=== PATIENT | male | born 1960 | race African-American/Black ===

== ENCOUNTER 2016-08-16 16:13 | Inpatient (IN) | payer MEDICAID ==
[~2016-08-16] VITALS: Ht 182.9 cm; Wt 169.3 kg
[2016-08-16 16:59] LABS: ADD SCAN DIFF NO
--- NOTE | 2016-08-16 16:59 | RADRPT ---
PROCEDURE: CHEST 1VW CLINICAL INDICATION: Chest pain TECHNIQUE: Single frontal view of the chest was obtained COMPARISON: None. FINDINGS: The cardiac size is moderately enlarged. Aortic vascular calcifications are demonstrated. There is mild pulmonary vascular congestion. The lungs are otherwise clear. No consolidation, effusion, or pneumothorax. Mild degenerative changes of the visualized osseous structures are visualized. IMPRESSION: 1. Moderate cardiomegaly with mild pulmonary vascular congestion. 2. Atherosclerosis. RPTAT:PP .Jeyson Bermudez MD, MD Date Time Electronically viewed and signed by .Jeyson Bermudez MD, on 08/16/2016 16:59 .V/
[2016-08-16] MEDS ORDERED: FUROSEMIDE 40 MG INJ IV ONE (17:00)
[2016-08-16] MEDS ORDERED: NITROGLYCERIN 2% 1 GM OINT PKT TD ONE (17:00)
[2016-08-16 17:04] LABS: BASOPHIL # 0.1 10^3/ul (0.0-0.1); BASOPHILS % 0.6 % (0.0-2.0); EOSINOPHILS # 0.2 10^3/ul (0.0-0.5); HEMATOCRIT 60.9 % (42.0-52.0); HEMOGLOBIN 19.3 g/dl (14.0-18.0); LYMPHOCYTES # 2.2 10^3/ul (0.8-2.9); LYMPHOCYTES % 24.2 % (15.0-51.0); MEAN CORPUSCULAR HEMOGLOBIN 29.4 pg (29.0-33.0); MEAN CORPUSCULAR HGB CONC 31.7 g/dl (32.0-37.0); MEAN CORPUSCULAR VOLUME 92.8 fl (82.0-101.0); MEAN PLATELET VOLUME 11.4 fl (7.4-10.4); MONOCYTES % 10.8 % (0.0-11.0); NEUTROPHIL # 5.5 10^3/ul (1.6-7.5); NEUTROPHILS % 61.7 % (39.0-77.0); PLATELET COUNT 223 10^3/UL (140-415); RED BLOOD COUNT 6.56 10^6/ul (4.70-6.10); RED CELL DISTRIBUTION WIDTH 13.6 % (11.5-14.5); WHITE BLOOD COUNT 8.9 10^3/ul (4.8-10.8)
[2016-08-16 17:19] LABS: INR 0.99; PARTIAL THROMBOPLASTIN TIME 32.7 Sec (25.0-35.0); PROTIME 13.1 Sec (12.2-14.2)
--- NOTE | 2016-08-16 17:22 | ERA ---
ER Documentation Chief Complaint Date/Time DATE: 08/16/16 TIME: 162 Chief Complaint Complains of SOB x 1 week HPI 56-year-old male presents to the emergency department complaining of shortness of breath and lower extremity swelling. Patient states for the last week, he has noticed increasing edema about both lower extremities. He has had exertional dyspnea with PND and orthopnea. He reports no chest pain or palpitations. He reports no difficulty urinating. He reports no fevers or chills. ROS All systems reviewed and are negative except as per history of present illness. Medications Home Meds No Active Prescriptions or Reported Meds Allergies Allergies: Coded Allergies: No Known Allergy (Unverified , 08/16/16) PMhx/Soc Medical and Surgical Hx: pt denies Medical Hx, pt denies Surgical Hx History of Surgery: No Anesthesia Reaction: No Hx Neurological Disorder: No Hx Respiratory Disorders: No Hx Cardiac Disorders: No Hx Psychiatric Problems: No Hx Miscellaneous Medical Probl: No Hx Alcohol Use: No Hx Substance Use: No Hx Tobacco Use: No Smoking Status: Never smoker FmHx Family history of diabetes Physical Exam Vitals Vital Signs Date Time Temp Pulse Resp B/P Pulse Ox O2 Delivery O2 Flow Rate FiO2 08/16/16 17:11 104 24 139/114 96 Room Air 08/16/16 16:37 0 08/16/16 16:15 99.0 117 20 219/122 92 Physical Exam GENERAL: Patient is a large, plethoric male HEENT: Pupils equal, round, and reactive to light. EOMI. There is no scleral icterus. NECK: C-spine is soft and supple, there is no meningismus. There is no cervical lymphadenopathy. JVD is appreciated LUNGS: Crackles at bilateral bases. No tachypnea or retractions HEART: Regular rate and rhythm with no obvious murmurs ABDOMEN: Soft, non-tender, non-distended. There are bowel sounds in all four quadrants. No rebound or guarding. EXTREMITIES: 2-3+ edema both lower extremities with no cyanosis or clubbing NEURO: The patient moves all four extremities with 5/5 strength. Cranial nerves II - XII are intact. Normal gait. Alert and oriented SKIN: There is no apparent rash or petechiae. HEME/LYMPHATIC: There is no evidence of excessive bruising or lymphedema. PSYCHIATRIC: The patient does not appear anxious or depressed. Result Diagram: 08/16/16 1640 Results 24 hrs Laboratory Tests Test 08/16/16 16:40 White Blood Count 8.910^3/ul Red Blood Count 6.5610^6/ul Hemoglobin 19.3g/dl Hematocrit 60.9% Mean Corpuscular Volume 92.8fl Mean Corpuscular Hemoglobin 29.4pg Mean Corpuscular Hemoglobin Concent 31.7g/dl Red Cell Distribution Width 13.6% Platelet Count 25286^3/UL Mean Platelet Volume 11.4fl Neutrophils % 61.7% Lymphocytes % 24.2% Monocytes % 10.8% Eosinophils % 2.0% Basophils % 0.6% Nucleated Red Blood Cells % 0.0/100WBC Neutrophils # 5.510^3/ul Lymphocytes # 2.210^3/ul Monocytes # 1.010^3/ul Eosinophils # 0.210^3/ul Basophils # 0.110^3/ul Nucleated Red Blood Cells # 0.010^3/ul Current Medications Medications (Trade) Dose Ordered Sig/Fransico Route PRN Reason Start Time Stop Time Status Last Admin Dose Admin Nitroglycerin (Nitroglycerin 2% Oint) 1 inch ONCE ONCE TD 08/16/16 17:00 08/16/16 17:01 DC 08/16/16 16:46 Furosemide (Lasix) 40 mg ONCE ONCE IV 08/16/16 17:00 08/16/16 17:01 DC 08/16/16 16:47 Procedures/MDM Patient was taken to a room, seen and evaluated. Comfort measures were initiated. Diagnostic tests were ordered and reviewed. 3 LEAD RHYTHM STRIP: Sinus tachycardia EK lead EKG reviewed by myself: Sinus tachycardia Left axis deviation with LVH Nonspecific ST and T-wave changes without ST elevation Impression: Abnormal, nonspecific EKG RADIOLOGY: reviewed with the radiologist CONSULTATION:hospitalist was notified for admission REEVALUATION: Patient's blood pressure was improved with the nitroglycerin. MEDICAL DECISION MAKIN-year-old male presents to the emergency department with symptoms consistent with fluid overload. Patient has a history of what appears to be untreated hypertension. He is also been using testosterone for some time now. Concerned that he likely has a cardiomyopathy likely related to either the testosterone, the blood pressure or both. Patient has required blood pressure control with nitroglycerin as well as Lasix for diuresis. Patient will be admitted to the hospital for further diagnostic observation including troponins and echocardiogram. Patient will be gently diuresed with further evaluation pending. Departure Diagnosis: Primary Impression: Congestive heart failure Additional Impressions: Severe hypertension Cardiomyopathy Condition: YSABEL Anna August 16, 2016 17:22
[2016-08-16 17:27] LABS: ALBUMIN 3.9 g/dl (3.3-4.9); ALBUMIN/GLOBULIN RATIO 1.08; BILIRUBIN,INDIRECT 0.6 mg/dl (0-1.1); BILIRUBIN,TOTAL 0.6 mg/dl (0.2-1.3); CALCIUM 8.8 mg/dl (8.4-10.2); CREATININE 1.64 mg/dl (0.61-1.24); POTASSIUM 4.2 mmol/L (3.5-5.1); TOTAL PROTEIN 7.5 g/dl (6.1-8.1)
[2016-08-16 17:37] LABS: TROPONIN-I 0.041 ng/ml (0.00-0.12)
[2016-08-16] MEDS ORDERED: ACETAMINOPHEN 325 MG TAB PO PRN (18:30)
[2016-08-16] MEDS ORDERED: hydrALAzine 20 MG INJ IV PRN (18:30)
[2016-08-16] MEDS ORDERED: BISACODYL (EC) 5 MG TAB PO PRN (18:30)
[2016-08-16] MEDS ORDERED: LORAZEPAM 2 MG INJ IV PRN (18:30)
[2016-08-16] MEDS ORDERED: HYDROCODONE/APAP (5/325) TAB PO PRN (18:30)
[2016-08-16] MEDS ORDERED: ZOLPIDEM 5 MG TAB PO PRN (18:30)
[2016-08-16] MEDS ORDERED: morphine 2 MG INJ IV PRN (18:30)
[2016-08-16] MEDS ORDERED: MAGNESIUM HYDROXIDE 30ML CUP PO PRN (18:30)
[2016-08-16] MEDS ORDERED: ONDANSETRON 4 MG INJ IV PRN (18:30)
[2016-08-16] MEDS ORDERED: NACL 0.9% 3 ML SYG IV SCH (18:30)
--- NOTE | 2016-08-16 19:43 | HP ---
DATE OF ADMISSION: 08/16/2016 TIME OF EVALUATION: 1800 REASON FOR ADMISSION: Shortness of breath. CONSULTANTS: Dr. Paul Washington, Cardiology. HISTORY OF PRESENT ILLNESS: This is a 56-year-old -[place] male who denied any past medical history, who came to the emergency room with chief complaint of dyspnea as well as bilateral lower extremity swelling that has been going on for the past 2 days. The patient verbalized exertional dyspnea with PND and orthopnea. The patient denied any chest pain or palpitations. The patient was complaining of abdominal fullness. The patient verbalized that he has been using Advil PM for the past few days to help him with sleep. The patient verbalized constipation. He denied any nausea, vomiting, or diaphoresis. The patient denied any syncope or presyncope. The patient does not regularly go to a physician and he is unaware whether he has any known medical conditions. In the emergency room, the patient was noticed to have a blood pressure of 219/ 122. The patient's initial set of troponins were negative. The patient was noticed to have a creatinine of 1.64. The patient was noticed to have a hemoglobin and hematocrit of 19.3 and 60.9 respectively. The patient's chest x- ray showed moderate cardiomegaly with mild pulmonary vascular congestion and atherosclerosis. The patient's 12-lead EKG showed sinus tachycardia with possible biatrial enlargement. The patient was treated with a single dose of IV Lasix and nitroglycerin patch in the emergency room. PAST MEDICAL HISTORY: Denies. PAST SURGICAL HISTORY: Denies. HOME MEDICATIONS: None. ALLERGIES: NO KNOWN DRUG ALLERGIES. 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 Denies any use of tobacco, alcohol or recreational drug use. The patient verbalized that he used testosterone in the beginning of the month. FAMILY HISTORY: Positive for hypertension and diabetes. REVIEW OF SYSTEMS: A 12-point review of systems were made and the review of systems are negative other than what is mentioned in history of present illness. PHYSICAL EXAMINATION: VITAL SIGNS: Temperature 99.0, pulse rate 114, respiratory rate 18, blood pressure 155/105, oxygen saturation 96% on room air. GENERAL: This is a morbidly obese -[place] male lying in bed in mild respiratory distress. HEENT: Head normocephalic and atraumatic. Eyes: Anicteric sclerae. Conjunctivae clear. ENT: Nasal septum is midline. Oral mucosa is dry. NECK: Supple. No JVD noticed. RESPIRATORY: Bilaterally diminished breath sounds. Minimal use of accessory muscles of respiration. CARDIAC: Regular rate and rhythm. S1 and S2 heard. ABDOMEN: Soft, nontender and nondistended. Bowel sounds positive in all 4 quadrants. GENITOURINARY: Deferred. EXTREMITIES: Bilateral lower extremity discoloration with erythema and tenderness to touch with an open wound on the right rider anteriorly. Bilateral lower extremity peripheral pulses palpable. NEUROLOGIC: The patient is awake, alert and oriented. Cranial nerves are grossly intact. LABORATORY AND DIAGNOSTIC DATA: WBC 8.9, hemoglobin 19.3, hematocrit 60.9, platelet count 223. Sodium 142, potassium 4.0, chloride 101, carbon dioxide 30 , anion gap 15, BUN 17, creatinine 1.64, glucose 122, calcium 8.8, AST 42, ALT 56, alkaline phosphatase 81. BNP 825, PT 13.1, INR 0.998, PTT 32.7. Chest x-ray: Moderate cardiomegaly with mild pulmonary vascular congestion. Atherosclerosis. 12-lead EKG: Sinus tachycardia. Possible biatrial enlargement. IMPRESSION: This is a 56-year-old morbidly obese male who denied any significant past medical history, who came to the emergency room with chief complaint of dyspnea with dyspnea on exertion, paroxysmal nocturnal dyspnea and orthopnea, along with bilateral lower extremity edema. He will be admitted here for further treatment and evaluation. ASSESSMENT AND PLAN: 1. Acute respiratory failure. Hypoxia. Most probably secondary to underlying congestive heart failure exacerbation. The patient will be adequately diuresed. A Cardiology consult will be obtained. The patient will be started on aspirin. 2. Possible underlying congestive heart failure exacerbation. Systolic versus diastolic dysfunction. The patient will be adequately diuresed while watching the patient's renal function. Cardiology consult will be obtained. A 2D echocardiogram will be obtained to evaluate the left ventricular ejection fraction and to evaluate for any wall motion abnormalities. 3. Bilateral lower extremity edema. Etiology unclear. Bilateral lower extremity venous Doppler study will be done to evaluate for any underlying deep venous thrombosis. The patient will be adequately diuresed. 4. Acute nonoliguric kidney injury. Unknown baseline creatinine. Nephrotoxic drugs will be used with caution. The patient's BUN and creatinine will be monitored closely. 5. Bilateral lower extremity cellulitis. The patient will be started on appropriate antibiotics. 6. Morbid obesity. BMI of 50.8 kilograms per meter square. Weight reduction will be advised. A fasting lipid panel and a hemoglobin A1c will be obtained. 7. Hypertensive urgency. The patient's blood pressure is trending down. The patient's blood pressure will be lowered gradually. The patient will be started on beta blockers. The patient has bilateral lower extremity edema, therefore, calcium channel blockers will be avoided at this time. HIMA inhibitors will be avoided because of underlying elevated creatinine. 8. Polycythemia. Etiology unclear. Will monitor the H&H closely. Plan. The patient will be admitted to inpatient telemetry floor. The patient will be started on a low cholesterol diet. The patient will be started on DVT prophylaxis and gastrointestinal prophylaxis. The patient will remain a FULL CODE. Activities will be as tolerated. The rest of the patient's management will be based on the clinical course, the results of diagnostic studies, and inputs from consultants. Based on the patient's clinical presentation, he most probably requires at least 1 midnight's stay for further management and evaluation of his clinical presentation. The case and management of this patient was fully discussed with Dr. Mcintyre. ISAAC MCINTYRE MD, AM/JOSI Conf#: [id number] DID#: [id number] MTDD
[2016-08-16 20:42] VITALS: TEMP 98.8
[2016-08-16 21:00] VITALS: Ht 182.9 cm; Wt 169.3 kg
[2016-08-16] MEDS: POLYETHYLENE GLYCOL 17 GM PACKET PO SCH (21:00)
[2016-08-16 21:07] VITALS: PULSE 94
[2016-08-16 21:08] VITALS: BP 155/97; RESP 20
[2016-08-16] MEDS: CEPHALEXIN 500 MG CAP PO SCH (22:12)
[2016-08-16] MEDS: FAMOTIDINE 20 MG TAB PO SCH (22:12)
[2016-08-16] MEDS: METOPROLOL 25 MG TAB PO SCH (22:14)
[2016-08-16] MEDS: HEPARIN 5,000 UNIT/0.5 ML VIAL SC SCH (22:25)
[2016-08-16 23:49] LABS: CK-MB 3.1 ng/ml (0.0-2.4)
[2016-08-16 23:53] LABS: TROPONIN-I 0.145 ng/ml (0.00-0.12)
[2016-08-17] VITALS (12 sets, daily range): BP systolic 126–139; BP diastolic 71–90; PULSE 76–88; RESP 18–20
[2016-08-17 02:02] LABS: ADD UMIC YES; URINE BILIRUBIN (Dip) NEGATIVE (NEGATIVE); URINE BLOOD (Dip) TRACE (NEGATIVE); URINE COLOR LT. YELLOW (YELLOW); URINE GLUCOSE (Dip) NEGATIVE (NEGATIVE); URINE KETONES (Dip) NEGATIVE (NEGATIVE); URINE LEUKOCYTE ESTERASE (Dip) NEGATIVE (NEGATIVE); URINE NITRITE (Dip) NEGATIVE (NEGATIVE); URINE TOTAL PROTEIN (Dip) 1+ (NEGATIVE); URINE UROBILINOGEN (Dip) 0.2 E.U./dL (0.1-1.0)
[2016-08-17 02:18] LABS: URINE RBCS 0-2 /HPF (0)
[2016-08-17 02:25] LABS: BARBITURATES NEGATIVE (NEGATIVE); BENZODIAZEPINES NEGATIVE (NEGATIVE); CANNABINOIDS NEGATIVE (NEGATIVE); COCAINE NEGATIVE (NEGATIVE); OPIATES NEGATIVE (NEGATIVE)
[2016-08-17] MEDS: CEPHALEXIN 500 MG CAP PO SCH ×3 (05:29→21:02)
[2016-08-17] MEDS: HEPARIN 5,000 UNIT/0.5 ML VIAL SC SCH ×3 (05:41→21:13)
[2016-08-17 06:51] LABS: ADD SCAN DIFF NO
[2016-08-17 06:59] LABS: BASOPHIL # 0.1 10^3/ul (0.0-0.1); BASOPHILS % 0.5 % (0.0-2.0); EOSINOPHILS # 0.2 10^3/ul (0.0-0.5); EOSINOPHILS % 2.3 % (0.0-7.0); HEMATOCRIT 60.6 % (42.0-52.0); HEMOGLOBIN 18.8 g/dl (14.0-18.0); LYMPHOCYTES # 2.3 10^3/ul (0.8-2.9); LYMPHOCYTES % 24.1 % (15.0-51.0); MEAN CORPUSCULAR HEMOGLOBIN 29.5 pg (29.0-33.0); MEAN CORPUSCULAR VOLUME 95.1 fl (82.0-101.0); MONOCYTE # 1.1 10^3/ul (0.3-0.9); MONOCYTES % 11.8 % (0.0-11.0); NEUTROPHIL # 5.8 10^3/ul (1.6-7.5); NEUTROPHILS % 60.9 % (39.0-77.0); PLATELET COUNT 217 10^3/UL (140-415); RED BLOOD COUNT 6.37 10^6/ul (4.70-6.10); WHITE BLOOD COUNT 9.5 10^3/ul (4.8-10.8)
[2016-08-17 07:17] LABS: ALBUMIN 3.6 g/dl (3.3-4.9); CHOL/HDL RATIO 5.3 RATIO; MAGNESIUM 2.3 mg/dl (1.7-2.5); PHOSPHORUS 3.9 mg/dl (2.5-4.9); POTASSIUM 4.4 mmol/L (3.5-5.1)
[2016-08-17 07:19] LABS: CREATININE 1.74 mg/dl (0.61-1.24)
[2016-08-17 07:20] LABS: ALBUMIN/GLOBULIN RATIO 1.05; CALCIUM 8.4 mg/dl (8.4-10.2)
[2016-08-17 07:26] LABS: TROPONIN-I 0.205 ng/ml (0.00-0.12)
[2016-08-17] MEDS: ASPIRIN 81 MG TAB PO SCH (08:31)
[2016-08-17] MEDS: POLYETHYLENE GLYCOL 17 GM PACKET PO SCH ×2 (08:32→21:00)
[2016-08-17] MEDS: METOPROLOL 25 MG TAB PO SCH (08:32)
[2016-08-17] MEDS: FUROSEMIDE 40 MG INJ IV SCH (08:32)
[2016-08-17] MEDS: FAMOTIDINE 20 MG TAB PO SCH ×2 (08:32→21:01)
[2016-08-17 08:35] LABS: CK-MB 2.89 ng/ml (0.0-2.4); TROPONIN-I 0.206 ng/ml (0.00-0.12)
--- NOTE | 2016-08-17 08:53 | RADRPT ---
PROCEDURE: US Lower extremity Venous. CLINICAL INDICATION: Bilateral lower extremity edema TECHNIQUE: Multiple sonographic images of the bilateral lower extremity deep venous system was obt ained utilizing grayscale, color-flow, compressive sonography and doppler imaging with augmentation. The images were reviewed on a PACS workstation. COMPARISON: None. FINDINGS: The study is limited due to the patient's body habitus. The left distal femoral vein was not visual ized. The right distal femoral vein is patent. There is normal compressibility and flow within the bilateral common femoral, proximal and mid femor al , posterior tibial and popliteal veins. RPTAT: AA IMPRESSION: No sonographic evidence for deep venous thrombosis. Limited study due to patient body habitus. .Awais Medel MD, MD Date Time Electronically viewed and signed by .Awais Medel MD, on 08/17/2016 08:52 .S/
--- NOTE | 2016-08-17 09:02 | RADRPT ---
PROCEDURE: Retroperitoneal US. CLINICAL INDICATION: isis TECHNIQUE: Multiple sonographic images of the retroperitoneum were obtained. The images were revi ewed on a PACS workstation. COMPARISON: No prior studies are available for comparison. FINDINGS: The right kidney measures 10.9 cm. The left kidney measures 11.8 cm. The renal parenchymal echotexture is normal. There is no hydronephrosis. There is no focal renal mass or calcification seen. There is a 2.6 cm simple cyst in the lower pole of the left kidney. The bladder is grossly unremarkable. IMPRESSION: 2.6 cm simple left renal cyst. Bilateral kidneys are otherwise unremarkable. RPTAT: EE Physician Alfonzo Date Time Electronically viewed and signed by Physician Alfonzo on 08/17/2016 09:02 /
--- NOTE | 2016-08-17 10:31 | CONS ---
DATE OF ADMISSION: 08/16/2016 DATE OF CONSULTATION: 08/17/2016 REASON FOR CONSULTATION: Acute kidney injury. PHYSICIAN REQUESTING CONSULT: Shiv Garcia NP HISTORY OF PRESENT ILLNESS: This is a 56-year-old male with no known past history with obesity who presents to [facility] with complaints of dyspnea on exertion, bilateral lower ext remity swelling over the past several days. The patient states that over the past several days he h as noted to have increased lower extremity swelling with noted exertional dyspnea. The patient is a lso describing PND and orthopnea. The patient denied having any nausea, vomiting or any hematuria. As a result of these symptoms, he came to the emergency room for evaluation. Upon arrival, the pat ient was noted to be hypertensive with systolic pressures of 200s. Chest x-ray was obtained which s howed evidence of cardiomegaly with pulmonary vascular congestion. In the emergency room, patient h ad serial troponins checked which were elevated ranging from 0.1 to 0.2. The patient had elevated B HR LEADER at 825. In the emergency room, the patient was given aspirin, diuretic therapy and admitted up t o telemetry for evaluation. In terms of the patient's renal history, the patient describes having possible acute kidney injury a s a child. The patient describes some kind of surgery; it is unclear if it was from a stone obstruc tion or acute GN. The patient states as far as he understood, his kidney function improved. Additi onally, patient has not seen a physician in quite some time and has not had any recent lab work done . The patient denies taking any recent contrast exposure. Denies any NSAID use. Denies any frothy urine. Denies any rashes. PAST MEDICAL HISTORY: History of obesity, questionable history of acute kidney injury as a child. PAST SURGICAL HISTORY: None. HOME MEDICATIONS: None. ALLERGIES: NO KNOWN DRUG ALLERGIES. 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 No alcohol or drug use. FAMILY HISTORY: Positive for hypertension, diabetes. No family history of kidney disease. REVIEW OF SYSTEMS: A 14-point review of systems was conducted; pertinent positives as in HPI, other overton negative. PHYSICAL EXAMINATION: VITAL SIGNS: Blood pressure 132/90, respiration 18, pulse 86, temperature 97.9. HEENT: Head is normocephalic. NECK: Supple. HEART: Regular rate. LUNGS: Show diminished breath sounds at base. ABDOMEN: Soft, nontender to palpation without rebound or guarding. EXTREMITIES: Negative for clubbing, cyanosis. Positive edema. DERMATOLOGIC: No rashes. MUSCULOSKELETAL: No joint effusions. NEUROLOGIC: No change in exam. No focal deficits. MEDICATIONS: The patient's medications have been reviewed. LABORATORY DATA: Shows a white count 9.5, hemoglobin .8, hematocrit 60.6, platelet count 270. Sodium 142, potassium 4.4, chloride 107, BUN 18, creatinine 1.74. ASSESSMENT AND PLAN: This is a 56-year-old male who presents with: 1. Nonoliguric acute kidney injury with unknown baseline creatinine, possible chronic kidney diseas e. Etiology of current acute kidney injury is likely from hemodynamics, hypertensive urgency, quest ionable tubular injury. The patient's urinalysis does show +1 proteinuria but otherwise is flat. P gianni at this point is to repeat UA with microanalysis, we will check electrolytes. We will check irish al ultrasound to rule out renal parenchyma and to rule out any form of obstruction. Would continue current medical management and monitor renal function and electrolytes closely. Otherwise, continue supportive care, renally dose all medications and avoid nephrotoxins. 2. Possible chronic kidney disease; underlying etiology may be due hypertensive nephrosclerosis zuhair angela previous acute kidney injury and nephrotoxic exposure. The patient currently has acute kidney i njury as stated above. We will continue medical management. We will also follow up renal ultrasoun d. We will quantify the patient's proteinuria by checking a microalbumin, creatinine ratio and prot ein to creatinine ratio. We will continue to monitor closely. 3. Acute respiratory failure, dyspnea. Etiology is secondary to congestive heart failure exacerbat ion, acute myocardial infarction; however, would rule out possibility of PE. Plan would be to check a Doppler lower extremity ultrasound with followup 2D echo. Continue to check serial troponins. C ontinue current diuretic regimen, we will monitor closely. 4. Volume overload; patient has noted lower extremity edema. Etiology is likely secondary to conge stive heart failure, possibly systolic, diastolic. The patient has noted edema on exam. Chest x-ra y shows pulmonary congestion. At this point, continue current medical management. Continue diureti c regimen. Follow up 2D echo. Continue to monitor strict I's and O's. 5. Mineral bone disorder; monitor calcium and phosphorus levels. 6. Polycythemia; patient's hemoglobin levels are markedly elevated. We will continue to monitor; m ay consider hematologic evaluation. 7. Lower extremity cellulitis. Continue current antibiotic regimen. 8. Hypertensive urgency. Etiology may be multifactorial, undiagnosed hypertension, increased intra vascular volume. The patient's blood pressures have improved. Continue current medical management. 9. Morbid obesity. Continue dietary modification. Thank you, Shiv for this interesting consult. It will be a pleasure to follow patient with yo u throughout the hospital course. Dictated By: MADONNA MUSTAFA DO NR/NTS Conf#: [id number] DID#: [id number] CC: SHIV GARCIA NP; Yesi Salcido;*[facility]*
[2016-08-17 11:30] LABS: ADD UMIC YES; URINE BILIRUBIN (Dip) NEGATIVE (NEGATIVE); URINE BLOOD (Dip) TRACE (NEGATIVE); URINE COLOR LT. YELLOW (YELLOW); URINE GLUCOSE (Dip) NEGATIVE (NEGATIVE); URINE KETONES (Dip) NEGATIVE (NEGATIVE); URINE LEUKOCYTE ESTERASE (Dip) NEGATIVE (NEGATIVE); URINE NITRITE (Dip) NEGATIVE (NEGATIVE); URINE TOTAL PROTEIN (Dip) 1+ (NEGATIVE); URINE UROBILINOGEN (Dip) 0.2 E.U./dL (0.1-1.0)
[2016-08-17 11:59] LABS: BACTERIA,URINE RARE; URINE RBCS 0-2 /HPF (0)
--- NOTE | 2016-08-17 13:02 | RADRPT ---
Echocardiogram Report Patient Name: GREY AVILA Gender: Male Date: 1960 Study Date: 17-Aug-2016 Jewelry Dipper: Kiara [facility] Location: [id number] Ref. Physician: ISAAC MASSEY Quality: Technically Difficult Study Procedures: Transthoracic echocardiogram with complete 2D, M-Mode, and doppler examination. Indications: Evaluate Left Ventricular function. 2D/M Mode Doppler Measurement Value Normal Ranges Measurement Value Normal Ranges LVIDd 2D 7.2 3.5 - 5.6 cm AV Peak Valentino 1.0 m/sec LVIDs 2D 6.0 2.1 - 4.1 cm AV Peak PG 3.8 mmHg LVPWd 2D 1.6 0.6 - 1.1 cm LVOT Peak Valentino 0.5 m/sec IVSd 2D 1.3 0.6 - 1.1 cm LVOT Peak PG 1.2 mmHg AoR Diam 2D 3.4 2.0 - 3.7 cm MV E Peak Valentino 0.9 m/sec EDV 2D 274.3 cm3 MV A Peak Valentino 0.5 m/sec ESV 2D 219.1 cm3 MV E/A 1.6 LA Dimen 2D 3.7 2.3 - 4.0 cm MV Decel Time 175 msec MV Decel Bullitt 5 MV E/A 1.6 Findings Left Ventricle: Mild concentric left ventricular hypertrophy. Moderate enlargement of left ventricle cavity. Severe global left ventricular systolic dysfunction. Ejection fraction is visually estimated at 25 %. Tissue Doppler/Mitral Doppler indices are consistent with impaired relaxation (Stage I diastolic dysfunction). Right Ventricle: Normal right ventricular size. Normal right ventricular systolic function. Left Atrium: The left atrium is normal in size. Right Atrium: The right atrium is normal in size. Mitral Valve: Mild mitral leaflet calcification. Trace mitral regurgitation. Aortic Valve: No significant aortic stenosis or insufficiency. Aortic valve not well visualized. Tricuspid Valve: Normal appearance and function of the tricuspid valve with trace physiologic regurgitation. Pulmonic Valve: Pulmonic valve not well visualized. There is trace pulmonic regurgitation. Pericardium: Normal pericardium with no significant pericardial effusion. Aorta: Normal aortic root. IVC: Normal size and normal respiratory collapse consistent with normal right atrial pressure. Conclusions 1.Mild concentric left ventricular hypertrophy. Moderate enlargement of left ventricle cavity. Severe global left ventricular systolic dysfunction. Ejection fraction is visually estimated at 25 %. Tissue Doppler/Mitral Doppler indices are consistent with impaired relaxation (Stage I diastolic dysfunction). 2.Mild mitral leaflet calcification. Trace mitral regurgitation. 3.No significant aortic stenosis or insufficiency. Aortic valve not well visualized. 4.Normal appearance and function of the tricuspid valve with trace physiologic regurgitation. 5.Normal size and normal respiratory collapse consistent with normal right atrial pressure. 6.suboptimal study. Electronically Signed By: Paul Washington 17-Aug-2016 13:01:48 -0700 Patient Name: GREY AVILA Study Date: 17-Aug-2016 [id number]
--- NOTE | 2016-08-17 16:22 | PN ---
Date/Time of Note Date/Time of Note DATE: 08/17/16 TIME: 16:21 Assessment/Plan VTE Prophylaxis VTE Prophylaxis Intervention: heparin Lines/Catheters IV Catheter Type (from [facility]): Peripheral IV Urinary Cath still in place: No Assessment/Plan Chief Complaint/Hosp Course 1. Acute respiratory failure. Hypoxic. Secondary to underlying congestive heart failure exacerbation. The patient will be adequately diuresed. Will provide supplemental oxygen 2. Non-ST elevation myocardial infarction. The patient on aspirin. Being followed by cardiology. 3. Congestive heart failure exacerbation. Acute on chronic. Systolic dysfunction. Continue Lasix as per nephrology. 4. Cardiomyopathy with ejection fraction of 25%. Etiology unclear. Patient currently on beta blockers. Cardiology following. 5. Bilateral lower extremity edema. Bilateral lower extremity venous Doppler study due for any DVT. The patient will be adequately diuresed. 6. Acute nonoliguric kidney injury. Underlying unknown baseline creatinine. Nephrotoxic drugs will be used with caution. The patient's BUN and creatinine will be monitored closely. Nephrology following. 7. Bilateral lower extremity cellulitis. The patient will be continued on appropriate antibiotics. 8. Morbid obesity. BMI of 50.8 kilograms per meter square. Weight reduction will be advised. 9. Hypertensive urgency. The patient's blood pressure is trending down. The patient's blood pressure will be lowered gradually. 10. Polycythemia. Etiology unclear. Will obtain hematology consult. 11. Dyslipidemia. Low-cholesterol diet. 12. Fluids, electrolytes, and nutrition. Low-cholesterol, renal diet. 13. DVT prophylaxis. Subcutaneous heparin. 14. Gastrointestinal prophylaxis. Histamine 2 receptor blockers. 15. Plan. Continue telemetry monitoring. Await further cardiology recommendations. Case discussed with Dr. Thapa. Patient's mother Wilda was called at [phone] and updated the status. Problems: Subjective 24 Hr Interval Summary Free Text/Dictation Denies any chest pain or dyspnea. Exam/Review of Systems Vital Signs Vitals Vital Signs Date Time Temp Pulse Resp B/P Pulse Ox O2 Delivery O2 Flow Rate FiO2 08/17/16 15:18 84 19 139/80 98 08/17/16 11:25 97.9 08/17/16 08:43 Nasal Cannula 4.0 Intake and Output 08/16/16 08/16/16 08/17/16 15:00 23:00 07:00 Intake Total 400 ml Output Total 1150 ml 1350 ml Balance -1150 ml -950 ml Exam GENERAL: This is a morbidly obese -Surinamese male lying in bed in mild respiratory distress. HEENT: Head normocephalic and atraumatic. Eyes: Anicteric sclerae. Conjunctivae clear. ENT: Nasal septum is midline. Oral mucosa is dry. NECK: Supple. No JVD noticed. RESPIRATORY: Bilaterally diminished breath sounds. Minimal use of accessory muscles of respiration. CARDIAC: Regular rate and rhythm. S1 and S2 heard. ABDOMEN: Soft, nontender and nondistended. Bowel sounds positive in all 4 quadrants. GENITOURINARY: Deferred. EXTREMITIES: Bilateral lower extremity discoloration with erythema and tenderness to touch with an open wound on the right rider anteriorly. Bilateral lower extremity peripheral pulses palpable. NEUROLOGIC: The patient is awake, alert and oriented. Cranial nerves are grossly intact. Results Result Diagram: 08/17/16 0605 08/17/16 0605 Results 24 hrs Laboratory Tests Test 08/16/16 16:40 08/16/16 22:50 08/17/16 00:01 08/17/16 06:05 White Blood Count 8.9 9.5 Red Blood Count 6.56 H 6.37 H Hemoglobin 19.3 H 18.8 H Hematocrit 60.9 H 60.6 H Mean Corpuscular Volume 92.8 95.1 Mean Corpuscular Hemoglobin 29.4 29.5 Mean Corpuscular Hemoglobin Concent 31.7 L 31.0 L Red Cell Distribution Width 13.6 14.0 Platelet Count 223 217 Mean Platelet Volume 11.4 H 12.0 H Neutrophils % 61.7 60.9 Lymphocytes % 24.2 24.1 Monocytes % 10.8 11.8 H Eosinophils % 2.0 2.3 Basophils % 0.6 0.5 Nucleated Red Blood Cells % 0.0 0.0 Neutrophils # 5.5 5.8 Lymphocytes # 2.2 2.3 Monocytes # 1.0 H 1.1 H Eosinophils # 0.2 0.2 Basophils # 0.1 0.1 Nucleated Red Blood Cells # 0.0 0.0 Prothrombin Time 13.1 Prothrombin Time Ratio 1.0 INR International Normalized Ratio 0.99 Activated Partial Thromboplast Time 32.7 Sodium Level 142 142 Potassium Level 4.2 4.4 Chloride Level 101 107 Carbon Dioxide Level 30 34 H Anion Gap 15 5 #L Blood Urea Nitrogen 17 18 Creatinine 1.64 H 1.74 H Glucose Level 122 108 Hemoglobin A1c 5.6 Calcium Level 8.8 8.4 Total Bilirubin 0.6 1.0 Direct Bilirubin 0.00 0.00 Indirect Bilirubin 0.6 1.0 Aspartate Amino Transf (AST/SGOT) 42 39 Alanine Aminotransferase (ALT/SGPT) 56 48 Alkaline Phosphatase 81 80 Troponin I 0.041 0.145 *H 0.205 *H B-Type Natriuretic Peptide 825 H Total Protein 7.5 7.0 Albumin 3.9 3.6 Globulin 3.60 H 3.40 H Albumin/Globulin Ratio 1.08 1.05 Vitamin D 1,25-Dihydroxy < 12.8 L Thyroid Stimulating Hormone (TSH) 2.600 Free Thyroxine 0.86 Creatine Kinase 407 H 306 H Creatine Kinase Index 0.8 0.9 Creatinine Kinase MB (Mass) 3.10 H 2.89 H Urine Color LT. YELLOW Urine Clarity CLEAR Urine pH 5.5 Urine Specific [place] 1.015 Urine Ketones NEGATIVE Urine Nitrite NEGATIVE Urine Bilirubin NEGATIVE Urine Urobilinogen 0.2 E.U./dL Urine Leukocyte Esterase NEGATIVE Urine Microscopic RBC 0-2 Urine Microscopic WBC NONE SEEN Urine Hemoglobin TRACE Urine Glucose NEGATIVE Urine Total Protein 1+ H Urine Opiates Screen NEGATIVE Urine Barbiturates NEGATIVE Urine Amphetamines Screen NEGATIVE Urine Benzodiazepines Screen NEGATIVE Urine Cocaine Screen NEGATIVE Urine Cannabinoids NEGATIVE Phosphorus Level 3.9 Magnesium Level 2.3 Triglycerides Level 154 H Cholesterol Level 154 LDL Cholesterol, Calculated 94 HDL Cholesterol 29 Cholesterol/HDL Ratio 5.3 Test 08/17/16 09:35 Urine Color LT. YELLOW Urine Clarity CLEAR Urine pH 6.0 Urine Specific [place] 1.010 Urine Ketones NEGATIVE Urine Nitrite NEGATIVE Urine Bilirubin NEGATIVE Urine Urobilinogen 0.2 E.U./dL Urine Leukocyte Esterase NEGATIVE Urine Microscopic RBC 0-2 Urine Microscopic WBC NONE SEEN Urine Epithelial Cells RARE Urine Bacteria RARE Urine Hemoglobin TRACE Urine Random Creatinine 51.05 Urine Random Sodium 90 Urine Glucose NEGATIVE Urine Total Protein 83.0 H Medications Medications Current Medications Lorazepam (Ativan) 0.5 mg Q6H PRN IV ANXIETY; Start 08/16/16 at 18:30 Ondansetron HCl (Zofran Inj) 4 mg Q6H PRN IV NAUSEA AND/OR VOMITING; Start at 18:30 Aspirin (Aspirin) 81 mg DAILY PO Last administered on 08/17/16 08:31; Admin Dose 81 MG; Start 08/17/16 at 09:00 Acetaminophen (Tylenol Tab) 650 mg Q6H PRN PO PAIN LEVEL 1-3 OR FEVER Last administered on 08/16/16 22:15; Admin Dose 650 MG; Start 08/16/16 at 18:30 Acetaminophen/ Hydrocodone Bitart ([place] (5/325)) 2 tab Q6H PRN PO PAIN LEVEL 7 -10; Start 08/16/16 at 18:30 Morphine Sulfate (morphine) 2 mg Q4H PRN IV PAIN LEVEL 7-10; Start 08/16/16 at 18:30 Zolpidem Tartrate (Ambien) 5 mg QHS PRN PO INSOMNIA; Start 08/16/16 at 18:30 Magnesium Hydroxide (Milk Of Mag) 30 ml DAILY PRN PO CONSTIPATION; Start at 18:30 Bisacodyl (Dulcolax) 5 mg DAILY PRN PO CONSTIPATION; Start 08/16/16 at 18:30 Famotidine (Pepcid) 20 mg Q12 PO Last administered on 08/17/16 08:32; Admin Dose 20 MG; Start 08/16/16 at 21:00 Heparin Sodium (Porcine) (Heparin (5000 Units/0.5 ml)) 5,000 unit Q8 SC Last administered on 08/17/16 13:41; Admin Dose 5,000 UNIT; Start 08/16/16 at 22:00 Cephalexin (Keflex) 500 mg Q8 PO Last administered on 08/17/16 13:36; Admin Dose 500 MG; Start 08/16/16 at 22:00 Polyethylene Glycol (Miralax) 17 gm BID PO Last administered on 08/17/16 08:32 ; Admin Dose 17 GM; Start 08/16/16 at 21:00 Furosemide (Lasix) 40 mg DAILY IV Last administered on 08/17/16 08:32; Admin Dose 40 MG; Start 08/17/16 at 09:00 Metoprolol Tartrate (Lopressor) 25 mg BID PO Last administered on 08/17/16 08: 32; Admin Dose 25 MG; Start 08/16/16 at 21:00 Hydralazine HCl (Apresoline) 10 mg Q6H PRN IV SBP>170; Start 08/16/16 at 18:30 ISAAC MASSEY NP August 17, 2016 16:22 ISAAC MASSEY NP August 17, 2016 16:22
[2016-08-17] MEDS ORDERED: DIGOXIN 500 MCG INJ IV ONE (16:30)
[2016-08-17] MEDS: SPIRONOLACTONE 25 MG TAB PO SCH (16:47)
[2016-08-18] VITALS (13 sets, daily range): BP systolic 140–182; BP diastolic 81–94; PULSE 50–98; RESP 18–20
[2016-08-18] MEDS: CEPHALEXIN 500 MG CAP PO SCH ×3 (06:14→21:08)
[2016-08-18] MEDS: HEPARIN 5,000 UNIT/0.5 ML VIAL SC SCH ×3 (06:20→22:05)
[2016-08-18 07:32] LABS: ADD SCAN DIFF NO
[2016-08-18 07:41] LABS: BASOPHIL # 0.1 10^3/ul (0.0-0.1); BASOPHILS % 0.6 % (0.0-2.0); EOSINOPHILS # 0.2 10^3/ul (0.0-0.5); EOSINOPHILS % 2.1 % (0.0-7.0); HEMATOCRIT 61.3 % (42.0-52.0); HEMOGLOBIN 19.1 g/dl (14.0-18.0); LYMPHOCYTES # 1.9 10^3/ul (0.8-2.9); LYMPHOCYTES % 19.8 % (15.0-51.0); MEAN CORPUSCULAR HEMOGLOBIN 29.7 pg (29.0-33.0); MEAN CORPUSCULAR HGB CONC 31.2 g/dl (32.0-37.0); MEAN CORPUSCULAR VOLUME 95.2 fl (82.0-101.0); MEAN PLATELET VOLUME 11.5 fl (7.4-10.4); MONOCYTES % 10.5 % (0.0-11.0); NEUTROPHIL # 6.3 10^3/ul (1.6-7.5); NEUTROPHILS % 66.5 % (39.0-77.0); PLATELET COUNT 217 10^3/UL (140-415); RED BLOOD COUNT 6.44 10^6/ul (4.70-6.10); RED CELL DISTRIBUTION WIDTH 13.9 % (11.5-14.5); WHITE BLOOD COUNT 9.5 10^3/ul (4.8-10.8)
--- NOTE | 2016-08-18 07:52 | CONS ---
DATE OF ADMISSION: 08/16/2016 DATE OF CONSULTATION: 08/17/2016 TYPE OF CONSULTATION: Pulmonary. REFERRING PHYSICIAN: ISAAC GARCIA [facility]IN[facility] RECEPTIONIST. REASON FOR CONSULTATION: Congestive heart failure, cardiomyopathy. CHIEF COMPLAINT: Shortness of breath, lower extremity edema. HISTORY OF PRESENT ILLNESS: Thank you for referring this patient. I had review of the chart and di scussion with the physician, staff and Jose Garcia. The patient is a pleasant 56-year-old [place] gentleman with no reported past medical history who came to emergency room above complain t. Patient over the past 2 weeks has been having increasing shortness of breath and orthopnea. Als o, lower extremity edema. He has had severe dyspnea especially on limited activity even walking to his car. The patient normally exercises. He goes to the gym. He works out. He denies any drug ab use; however, has used testosterone though. Denies any chest pain or pressure to me. In the emerge ncy room, he was noted to be severely hypertensive, blood pressure of 290/122. Troponin has been mi ldly elevated at 0.14, repeat at 0.2. The patient, however, denies any chest pain or pressure to me . Creatinine also has been elevated. The patient has been placed on diuresis and currently breathi ng better. PAST MEDICAL HISTORY: He denies. SOCIAL HISTORY: The patient denies any history of tobacco, alcohol, drug abuse. He does use testos terone. MEDICATIONS AT HOME. None. However, he does use testosterone injection on his own. FAMILY HISTORY: No reported early coronary artery disease. ALLERGIES: NO REPORTED ALLERGIES. REVIEW OF SYSTEMS: Denied all except for above-mentioned. PHYSICAL EXAMINATION: VITAL SIGNS: Temperature 97.9, heart rate of 84, blood pressure 139/80, respiration rate of 19, sat urating 98%. Blood pressure on admission was 219/122 but since then has been down to 130 to 150s. Respiratory rate of 22, saturating 98%. HEENT: Normocephalic, atraumatic, morbidly obese gentleman. Pupils are equal. CARDIOVASCULAR: Regular rate and rhythm, systolic murmur. PULMONARY: With mild rhonchi at the base. GASTROINTESTINAL: Obese, soft, nontender. EXTREMITIES: Diffuse bilateral lower extremity edema. With positive ulceration on the right foot. NEUROLOGIC: Awake and alert. PSYCHIATRIC: Appears to be calm and pleasant. DIAGNOSTIC DATA: EKG was personally reviewed, which shows sinus tachycardia with anteroseptal infar ct, age undetermined, nonspecific T-wave abnormalities. Echocardiogram was also personally reviewed , which was a suboptimal study showed the LV is dilated at 7.2. Ejection fraction estimated about 2 5% with grade I diastolic dysfunction. Trace MR. Chest x-ray shows cardiomegaly, mild pulmonary va scular congestion. LABORATORY: Sodium 142, potassium 4.4, BUN of 18, creatinine 1.7, glucose 108. Troponin 0.145 and 0.2. CK total is 407 with MB fraction of 3.1 and 306 ____with of 2.86. Cholesterol is 154, LDL 94, HDL of 29. TSH is within normal limits at 2.6. WBC was 9.5, hemoglobin of 19.3 and platelets 223. ASSESSMENT AND PLAN: 1. Congestive heart failure, acute on chronic, secondary to systolic dysfunction. 2. Severe left ventricular severe cardiomyopathy, etiology is to be determined. 3. Mildly abnormal troponin, probably related to above, need to rule out underlying coronary artery disease. 4. Renal failure, acute on chronic. 5. Hypertensive urgency, currently improved. 6. Markedly elevated hemoglobin and hematocrit. Rule out hemochromatosis. 7. Dyslipidemia with low HDL level. 7. Renal failure, acute on chronic. 8. Respiratory failure secondary to above. 9. Lower extremity cellulitis and edema. RECOMMENDATIONS: Diuresis as per renal. We will continue with Lasix daily for now. Aldactone will be added. We will start the patient on digoxin as well. Will change the Coreg to carvedilol and a djust it as tolerated. Will hold off on HIMA inhibitor with acute renal failure for now. Hydralazin e nitrate combination will be continued. Recommend hematology evaluation for polycythemia. Will co ntinue to monitor along with you on telemetry. We will consider ischemic workup coronary angiograph y versus stress testing once the patient improves clinically from the heart failure standpoint. Dictated By: KELLEY MONGE/JOSI Conf#: [id number] DID#: [id number]
[2016-08-18 07:57] LABS: IRON 129 ug/dl (35-150)
[2016-08-18 08:04] LABS: ALBUMIN 4.4 g/dl (3.3-4.9); ALBUMIN/GLOBULIN RATIO 1.51; BILIRUBIN,INDIRECT 1.1 mg/dl (0-1.1); BILIRUBIN,TOTAL 1.1 mg/dl (0.2-1.3); CALCIUM 8.6 mg/dl (8.4-10.2); CREATININE 1.52 mg/dl (0.61-1.24); POTASSIUM 4.3 mmol/L (3.5-5.1); TOTAL PROTEIN 7.3 g/dl (6.1-8.1)
[2016-08-18 08:07] LABS: TOTAL IRON BINDING CAPACITY 324 ug/dl (241-421)
[2016-08-18 08:08] LABS: MAGNESIUM 2.1 mg/dl (1.7-2.5); PHOSPHORUS 2.7 mg/dl (2.5-4.9)
[2016-08-18 08:31] LABS: THYROID STIMULATING HORMONE 1.45 MIU/L (0.465-4.680)
[2016-08-18 08:35] LABS: FERRITIN 64.5 ng/ml (11.1-264.0)
[2016-08-18 08:36] LABS: CK-MB 2.06 ng/ml (0.0-2.4); TROPONIN-I 0.092 ng/ml (0.00-0.12)
[2016-08-18] MEDS: FAMOTIDINE 20 MG TAB PO SCH ×2 (08:37→21:08)
[2016-08-18] MEDS: SPIRONOLACTONE 25 MG TAB PO SCH (08:37)
[2016-08-18] MEDS: ASPIRIN 81 MG TAB PO SCH (08:38)
[2016-08-18] MEDS: POLYETHYLENE GLYCOL 17 GM PACKET PO SCH ×2 (08:39→21:00)
[2016-08-18] MEDS: FUROSEMIDE 40 MG INJ IV SCH (08:39)
--- NOTE | 2016-08-18 10:04 | PN ---
Date/Time of Note Date/Time of Note DATE: 08/18/16 TIME: 10:03 Assessment/Plan VTE Prophylaxis VTE Prophylaxis Intervention: heparin Lines/Catheters IV C[facility]ter Type (from [facility]): Peripheral IV Urinary Cath still in place: No Assessment/Plan Chief Complaint/Hosp Course 1. Acute respiratory failure. Hypoxic. Secondary to underlying congestive heart failure exacerbation. The patient will be adequately diuresed. Will provide supplemental oxygen 2. Non-ST elevation myocardial infarction. The patient on aspirin. Being followed by cardiology. 3. Congestive heart failure exacerbation. Acute on chronic. Systolic dysfunction. Continue Lasix as per nephrology. 4. Cardiomyopathy with ejection fraction of 25%. Etiology unclear. Patient currently on beta blockers. Cardiology following. 5. Bilateral lower extremity edema. Bilateral lower extremity venous Doppler study due for any DVT. The patient will be adequately diuresed. 6. Acute nonoliguric kidney injury. Underlying unknown baseline creatinine. Nephrotoxic drugs will be used with caution. The patient's BUN and creatinine will be monitored closely. Nephrology following. 7. Bilateral lower extremity cellulitis. The patient will be continued on appropriate antibiotics. 8. Morbid obesity. BMI of 50.8 kilograms per meter square. Weight reduction will be advised. 9. Hypertensive urgency. The patient's blood pressure is trending down. The patient's blood pressure will be lowered gradually. 10. Polycythemia. Etiology unclear. Will obtain hematology consult. 11. Dyslipidemia. Low-cholesterol diet. 12. Fluids, electrolytes, and nutrition. Low-cholesterol, renal diet. 13. DVT prophylaxis. Subcutaneous heparin. 14. Gastrointestinal prophylaxis. Histamine 2 receptor blockers. 15. Plan. Continue telemetry monitoring. Await further cardiology recommendations. Await hematology evaluation. Case discussed with Dr. Thapa. Problems: Subjective 24 Hr Interval Summary Free Text/Dictation Denies any chest pain. Complains of minimal exertional dyspnea. Exam/Review of Systems Vital Signs Vitals Vital Signs Date Time Temp Pulse Resp B/P Pulse Ox O2 Delivery O2 Flow Rate FiO2 08/18/16 08:35 92 08/18/16 07:41 Nasal Cannula 4.0 08/18/16 07:38 97.9 18 143/81 97 Intake and Output 08/17/16 08/17/16 08/18/16 15:00 23:00 07:00 Intake Total 1000 ml 400 ml Output Total 1500 ml 1150 ml Balance -500 ml -750 ml Exam GENERAL: This is a morbidly obese -Swedish male lying in bed in mild respiratory distress. HEENT: Head normocephalic and atraumatic. Eyes: Anicteric sclerae. Conjunctivae clear. ENT: Nasal septum is midline. Oral mucosa is dry. NECK: Supple. No JVD noticed. RESPIRATORY: Bilaterally diminished breath sounds. Minimal use of accessory muscles of respiration. CARDIAC: Regular rate and rhythm. S1 and S2 heard. ABDOMEN: Soft, nontender and nondistended. Bowel sounds positive in all 4 quadrants. GENITOURINARY: Deferred. EXTREMITIES: Bilateral lower extremity discoloration with erythema and tenderness to touch with an open wound on the right rider anteriorly. Bilateral lower extremity peripheral pulses palpable. NEUROLOGIC: The patient is awake, alert and oriented. Cranial nerves are grossly intact. Results Result Diagram: 08/18/16 0650 08/18/16 0650 Results 24 hrs Laboratory Tests Test 08/18/16 06:50 White Blood Count 9.5 Red Blood Count 6.44 H Hemoglobin 19.1 H Hematocrit 61.3 H Mean Corpuscular Volume 95.2 Mean Corpuscular Hemoglobin 29.7 Mean Corpuscular Hemoglobin Concent 31.2 L Red Cell Distribution Width 13.9 Platelet Count 217 Mean Platelet Volume 11.5 H Neutrophils % 66.5 Lymphocytes % 19.8 Monocytes % 10.5 Eosinophils % 2.1 Basophils % 0.6 Nucleated Red Blood Cells % 0.0 Neutrophils # 6.3 Lymphocytes # 1.9 Monocytes # 1.0 H Eosinophils # 0.2 Basophils # 0.1 Nucleated Red Blood Cells # 0.0 Sodium Level 137 Potassium Level 4.3 Chloride Level 103 Carbon Dioxide Level 29 Anion Gap 9 Blood Urea Nitrogen 19 Creatinine 1.52 H Glucose Level 101 Calcium Level 8.6 Phosphorus Level 2.7 Magnesium Level 2.1 Iron Level 129 Total Iron Binding Capacity 324 Percent Iron Saturation 40 Ferritin 64.5 Total Bilirubin 1.1 Direct Bilirubin 0.00 Indirect Bilirubin 1.1 Aspartate Amino Transf (AST/SGOT) 37 Alanine Aminotransferase (ALT/SGPT) 52 Alkaline Phosphatase 82 Creatine Kinase 214 H Creatine Kinase Index 1.0 Creatinine Kinase MB (Mass) 2.06 Troponin I 0.092 B-Type Natriuretic Peptide 549 H Total Protein 7.3 Albumin 4.4 Globulin 2.90 Albumin/Globulin Ratio 1.51 Thyroid Stimulating Hormone (TSH) 1.450 Medications Medications Current Medications Lorazepam (Ativan) 0.5 mg Q6H PRN IV ANXIETY; Start 08/16/16 at 18:30 Ondansetron HCl (Zofran Inj) 4 mg Q6H PRN IV NAUSEA AND/OR VOMITING; Start at 18:30 Aspirin (Aspirin) 81 mg DAILY PO Last administered on 08/18/16 08:38; Admin Dose 81 MG; Start 08/17/16 at 09:00 Acetaminophen (Tylenol Tab) 650 mg Q6H PRN PO PAIN LEVEL 1-3 OR FEVER Last administered on 08/16/16 22:15; Admin Dose 650 MG; Start 08/16/16 at 18:30 Acetaminophen/ Hydrocodone Bitart ([place] (5/325)) 2 tab Q6H PRN PO PAIN LEVEL 7 -10 Last administered on 08/18/16 06:59; Admin Dose 2 TAB; Start 08/16/16 at 18 :30 Morphine Sulfate (morphine) 2 mg Q4H PRN IV PAIN LEVEL 7-10; Start 08/16/16 at 18:30 Zolpidem Tartrate (Ambien) 5 mg QHS PRN PO INSOMNIA; Start 08/16/16 at 18:30 Magnesium Hydroxide (Milk Of Mag) 30 ml DAILY PRN PO CONSTIPATION; Start at 18:30 Bisacodyl (Dulcolax) 5 mg DAILY PRN PO CONSTIPATION; Start 08/16/16 at 18:30 Famotidine (Pepcid) 20 mg Q12 PO Last administered on 08/18/16 08:37; Admin Dose 20 MG; Start 08/16/16 at 21:00 Heparin Sodium (Porcine) (Heparin (5000 Units/0.5 ml)) 5,000 unit Q8 SC Last administered on 08/18/16 06:20; Admin Dose 5,000 UNIT; Start 08/16/16 at 22:00 Cephalexin (Keflex) 500 mg Q8 PO Last administered on 08/18/16 06:14; Admin Dose 500 MG; Start 08/16/16 at 22:00 Polyethylene Glycol (Miralax) 17 gm BID PO Last administered on 08/18/16 08:39 ; Admin Dose 17 GM; Start 08/16/16 at 21:00 Furosemide (Lasix) 40 mg DAILY IV Last administered on 08/18/16 08:39; Admin Dose 40 MG; Start 08/17/16 at 09:00 Hydralazine HCl (Apresoline) 10 mg Q6H PRN IV SBP>170; Start 08/16/16 at 18:30 Hydralazine HCl (Apresoline) 25 mg Q6 PO Last administered on 08/18/16 06:15; Admin Dose 25 MG; Start 08/17/16 at 18:00 Spironolactone (Aldactone) 25 mg DAILY PO Last administered on 08/18/16 08:37 ; Admin Dose 25 MG; Start 08/17/16 at 16:30 Digoxin (Digoxin) 0.125 mg DAILY@13 PO ; Start 08/18/16 at 13:00 Carvedilol (Coreg) 6.25 mg BID PO Last administered on 08/18/16 09:31; Admin Dose 6.25 MG; Start 08/18/16 at 09:00 ISAAC MASSEY NP August 18, 2016 10:04 ISAAC MASSEY NP August 18, 2016 10:04
--- NOTE | 2016-08-18 11:34 | PN ---
DATE: 08/18/2016 SUBJECTIVE: The patient is clinically stable, no acute events overnight. No fevers, chills, nausea , vomiting, shortness of breath. OBJECTIVE: VITAL SIGNS: Blood pressure 143/81, respiration 18, pulse 85, temperature 97.9. HEENT: Head is normocephalic. NECK: Supple. HEART: Regular rate. LUNGS: Show diminished breath sounds at base. ABDOMEN: Soft, nontender to palpation. No rebound or guarding. EXTREMITIES: Negative for clubbing, cyanosis. Positive edema. DERMATOLOGIC: No rashes. MUSCULOSKELETAL: No joint effusions. NEUROLOGIC: No change in exam. MEDICATIONS: The patient's medications have been reviewed. LABORATORY DATA: Shows sodium 137, potassium 4.3, chloride 103, BUN 19, creatinine 1.52. White cou nt 9.1, hemoglobin 19.1, hematocrit 61.3, platelet count 217. The patient's urinalysis is bland, pr otein creatinine ratio approximately 1.4 grams per gram of creatinine. Patient's renal ultrasound s hows bilateral kidneys, otherwise unremarkable, no hydronephrosis. No masses. IMAGING: Doppler lower extremity ultrasound shows no evidence of DVT. The patient's 2D echo shows ejection fraction of 25%, but normal IVC compressibility. The patient's medications have been revie wed. ASSESSMENT AND PLAN: 1. Nonoliguric acute kidney injury with unknown baseline creatinine. Etiology of acute kidney inju ry is secondary to hemodynamics, possible cardiorenal syndrome. The patient is clinically volume ov erloaded in congestive heart failure. The patient's 2D echo does show ejection fraction of 25%. Th e patient's urinalysis is bland, no evidence of active sediment. Patient has a protein creatinine r atio of approximately 1.5 grams per gram of creatinine. Renal ultrasound shows normal echogenicity of the parenchyma, no obstruction. These findings are suggestive of hemodynamics and/or cardiorenal syndrome as underlying etiology. However, cannot definitively rule out an underlying chronic kidne y disease. Plan would be to continue current treatment plan. Continue diuretic therapy. We will m onitor electrolytes and renal function closely. 2. Possible chronic kidney disease. The patient has a protein creatinine ratio of approximately 1. 5 grams per gram of creatinine. Underlying etiology is unclear, possibly due to previous nephrotoxi c exposure. However, will do full workup. We will check a microalbumin creatinine ratio. We will check an SPEP/UPEP with immunofixation. Would defer any HIMA inhibitor or ARB at this time in the se tting of acute kidney injury. Continue to treat acute kidney injury as stated above and monitor porsha sely. Please note the possibility of hypertensive nephrosclerosis as an underlying etiology is also a consideration. 3. Acute congestive heart failure exacerbation, systolic and diastolic. The patient's 2D echo show s ejection fraction of 25%. Continue current medical management. Continue diuretic therapy, monito r I's and O's closely. Patient will follow up with cardiology and may require a cardiac catheteriza tion and/or stress test to find out underlying etiology of congestive heart failure. 4. Acute respiratory failure secondary to congestive heart failure. The patient is clinically impr oving. Continue medical management. 5. Polycythemia. Continue to monitor H and H levels. 6. Lower extremity cellulitis, continue current antibiotic regimen. 7. Mineral bone disorder. Continue to monitor calcium and phosphorus levels. 8. Hypertensive urgency, improved. Continue current blood pressure regimen. Continue diuretic the rapy. 10. Morbid obesity. Continue dietary modification. Dictated By: MADONNA AVINA/JOSI Conf#: [id number] DID#: [id number]
[2016-08-18] MEDS: DIGOXIN 0.125 MG TAB PO SCH (12:40)
--- NOTE | 2016-08-18 13:37 | CONS ---
Date/Time of Note Date/Time of Note DATE: 08/18/16 TIME: 13:37 Assessment/Plan Assessment/Plan Chief Complaint/Hosp Course The patient is a 56 year old male who states that he has no past medical history , however has not been seen by a physician on a regular basis, who had been self -injecting testosterone every week for the last 6 weeks, last injection 2 weeks ago, not under the direction of a physician who presented with an NSTEMI and found to have cardiomyopathy with Ef 25%. Hematology asked to evaluate patient for polycythemia with hemoglobin of 19.1 and hematocrit of 61.3. 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 No known prior pulmonary issues, no known sleep apnea or snoring. - I doubt primary polycythemia, however will check epo level (would be suppressed if primary polycythemia) and JAK2 level. - Although the role of phlebotomy is not as well defined in the setting of testosterone-induced polycythemia, I do believe it would beneficial in this setting given that he presenting with NSTEMI which was likely caused by increase in blood viscosity which is a risk factor for thrombosis and stroke. I have called [facility] ([phone]) to perform therapeutic phlebotomy today to remove 500 cc blood via peripheral IV. - Patient already on aspirin which will help decrease risk of thrombosis - Also sent SPEP/UPEP/immunofixation and kappa/lambda light chains to evaluate for rare causes of cardiomyopathy such as amyloidosis however less likely Problems: Consultation Date/Type/Reason Admit Date/Time August 16, 2016 at 17:35 Date of Consultation: August 18, 2016 Type of Consultation: Hematology Reason for Consultation Polycythemia Hx of Present Illness The patient is a 56 year old male who states that he has no past medical history , however has not been seen by a physician on a regular basis, who presented with an NSTEMI and found to have cardiomyopathy with Ef 25%. The patient states that he had been self-injecting testosterone every week for the last 6 weeks, last injection 2 weeks ago, not under the direction of a physician. He has been weight lifting and also took creatine pre-workout. He also has been drinking lots of red bull and 5 hour energy drinks. He denies recent cocaine, no recent tobacco or alcohol or other drugs. He has no prior history of polycythemia to his knowledge. No pulmonary issues or known history of snoring or sleep apnea. He states that for the past two weeks, he has had dyspnea and chest pain with exertion. Currently he denies any complaints. Past Medical History Medical History: no pertinent history Past Surgical History Past Surgical Hx: no surgical history Family History Significant Family History: hypertension Social History Per HPI Smoking Status: Never smoker Exam/Review of Systems Vital Signs Vitals Vital Signs Date Time Temp Pulse Resp B/P Pulse Ox O2 Delivery O2 Flow Rate FiO2 08/18/16 12:24 86 08/18/16 11:35 98.0 18 144/85 95 08/18/16 07:41 Nasal Cannula 4.0 Intake and Output 08/17/16 08/17/16 08/18/16 15:00 23:00 07:00 Intake Total 1000 ml 400 ml Output Total 1500 ml 1150 ml Balance -500 ml -750 ml Exam Constitutional: alert, obese, oriented Psych: no complaints Head: normocephalic Eyes: nl conjunctiva Neck: supple Respiratory: clear to auscultation Cardiovascular: regular rate and rhythm Gastrointestinal: non-tender, soft Musculoskeletal: swelling (abrasions on bilateral lower extremities) Neurological: 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-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 intact Results Result Diagram: 08/18/16 0650 08/18/16 0650 Results 24 hrs Laboratory Tests Test 08/18/16 06:50 White Blood Count 9.5 Red Blood Count 6.44 H Hemoglobin 19.1 H Hematocrit 61.3 H Mean Corpuscular Volume 95.2 Mean Corpuscular Hemoglobin 29.7 Mean Corpuscular Hemoglobin Concent 31.2 L Red Cell Distribution Width 13.9 Platelet Count 217 Mean Platelet Volume 11.5 H Neutrophils % 66.5 Lymphocytes % 19.8 Monocytes % 10.5 Eosinophils % 2.1 Basophils % 0.6 Nucleated Red Blood Cells % 0.0 Neutrophils # 6.3 Lymphocytes # 1.9 Monocytes # 1.0 H Eosinophils # 0.2 Basophils # 0.1 Nucleated Red Blood Cells # 0.0 Sodium Level 137 Potassium Level 4.3 Chloride Level 103 Carbon Dioxide Level 29 Anion Gap 9 Blood Urea Nitrogen 19 Creatinine 1.52 H Glucose Level 101 Calcium Level 8.6 Phosphorus Level 2.7 Magnesium Level 2.1 Iron Level 129 Total Iron Binding Capacity 324 Percent Iron Saturation 40 Ferritin 64.5 Total Bilirubin 1.1 Direct Bilirubin 0.00 Indirect Bilirubin 1.1 Aspartate Amino Transf (AST/SGOT) 37 Alanine Aminotransferase (ALT/SGPT) 52 Alkaline Phosphatase 82 Creatine Kinase 214 H Creatine Kinase Index 1.0 Creatinine Kinase MB (Mass) 2.06 Troponin I 0.092 B-Type Natriuretic Peptide 549 H Total Protein 7.3 Albumin 4.4 Globulin 2.90 Albumin/Globulin Ratio 1.51 Thyroid Stimulating Hormone (TSH) 1.450 Medications Medications Current Medications Lorazepam (Ativan) 0.5 mg Q6H PRN IV ANXIETY; Start 08/16/16 at 18:30 Ondansetron HCl (Zofran Inj) 4 mg Q6H PRN IV NAUSEA AND/OR VOMITING; Start at 18:30 Aspirin (Aspirin) 81 mg DAILY PO Last administered on 08/18/16 08:38; Admin Dose 81 MG; Start 08/17/16 at 09:00 Acetaminophen (Tylenol Tab) 650 mg Q6H PRN PO PAIN LEVEL 1-3 OR FEVER Last administered on 08/16/16 22:15; Admin Dose 650 MG; Start 08/16/16 at 18:30 Acetaminophen/ Hydrocodone Bitart ([place] (5/325)) 2 tab Q6H PRN PO PAIN LEVEL 7 -10 Last administered on 08/18/16 06:59; Admin Dose 2 TAB; Start 08/16/16 at 18 :30 Morphine Sulfate (morphine) 2 mg Q4H PRN IV PAIN LEVEL 7-10; Start 08/16/16 at 18:30 Zolpidem Tartrate (Ambien) 5 mg QHS PRN PO INSOMNIA; Start 08/16/16 at 18:30 Magnesium Hydroxide (Milk Of Mag) 30 ml DAILY PRN PO CONSTIPATION; Start at 18:30 Bisacodyl (Dulcolax) 5 mg DAILY PRN PO CONSTIPATION; Start 08/16/16 at 18:30 Famotidine (Pepcid) 20 mg Q12 PO Last administered on 08/18/16 08:37; Admin Dose 20 MG; Start 08/16/16 at 21:00 Heparin Sodium (Porcine) (Heparin (5000 Units/0.5 ml)) 5,000 unit Q8 SC Last administered on 08/18/16 13:12; Admin Dose 5,000 UNIT; Start 08/16/16 at 22:00 Cephalexin (Keflex) 500 mg Q8 PO Last administered on 08/18/16 13:07; Admin Dose 500 MG; Start 08/16/16 at 22:00 Polyethylene Glycol (Miralax) 17 gm BID PO Last administered on 08/18/16 08:39 ; Admin Dose 17 GM; Start 08/16/16 at 21:00 Furosemide (Lasix) 40 mg DAILY IV Last administered on 08/18/16 08:39; Admin Dose 40 MG; Start 08/17/16 at 09:00 Hydralazine HCl (Apresoline) 10 mg Q6H PRN IV SBP>170; Start 08/16/16 at 18:30 Hydralazine HCl (Apresoline) 25 mg Q6 PO Last administered on 08/18/16 11:47; Admin Dose 25 MG; Start 08/17/16 at 18:00 Spironolactone (Aldactone) 25 mg DAILY PO Last administered on 08/18/16 08:37 ; Admin Dose 25 MG; Start 08/17/16 at 16:30 Digoxin (Digoxin) 0.125 mg DAILY@13 PO Last administered on 08/18/16 12:40; Admin Dose 0.125 MG; Start 08/18/16 at 13:00 Carvedilol (Coreg) 6.25 mg BID PO Last administered on 08/18/16 09:31; Admin Dose 6.25 MG; Start 08/18/16 at 09:00 STAN HILL MD August 18, 2016 13:37
[2016-08-18 15:51] LABS: MICROALBUMIN 38.1 mg/dL
[2016-08-19] VITALS (11 sets, daily range): BP systolic 113–144; BP diastolic 56–84; PULSE 80–96; RESP 16–20
[2016-08-19 01:59] LABS: PROTEIN, TOTAL 6.6 g/dL (6.1-8.1)
[2016-08-19] MEDS: CEPHALEXIN 500 MG CAP PO SCH ×3 (06:00→21:15)
[2016-08-19] MEDS: HEPARIN 5,000 UNIT/0.5 ML VIAL SC SCH ×3 (06:38→21:26)
[2016-08-19 07:34] LABS: ADD SCAN DIFF NO
--- NOTE | 2016-08-19 07:37 | PN ---
DATE: 08/18/2016 CARDIOLOGY FOLLOWUP SUBJECTIVE: Discussed with the staff. Rhythm strip reviewed. The patient remains in sinus rhythm. No chest pain or pressure. No palpitation. He still has shortness of breath, orthopnea. The pat ieabner has dyspnea on exertion, but improving. MEDICATIONS: Reviewed. PHYSICAL EXAMINATION: VITAL SIGNS: Temperature 97.9, heart rate of 95, blood pressure 143/81, respiration rate of 18, sat urating 95%. HEENT: Normocephalic, atraumatic. Obese gentleman. Pupils are equal. CARDIOVASCULAR: Regular rate and rhythm. Systolic murmur. PULMONARY: No wheezes. There is mild rhonchi at the base. GASTROINTESTINAL: Obese, soft, nontender. EXTREMITIES: Diffuse lower extremity edema. NEUROLOGIC: Awake and alert. PSYCHIATRIC: Appeared to be calm. LABORATORY: WBC of 9.5, hemoglobin 19.1, platelets of 217. Sodium 137, potassium 4.3, BUN of 19, c reatinine 1.52, glucose 101. BNP is 549. ASSESSMENT AND PLAN: 1. Congestive heart failure, acute on chronic, secondary to systolic dysfunction. 2. Severe cardiomyopathy. 3. Mildly abnormal troponin, probably related to above. Will need to rule out underlying coronary artery disease. 4. Renal failure, acute on chronic, currently improved today. 5. Hypertension. 6. . 7. Polycythemia. 8. Lower extremity cellulitis. 9. Morbid obesity. 10. History of steroid use. RECOMMENDATIONS: I will continue with the current IV Lasix. Coreg will be increased to 6.25 b.i.d. dose. We will schedule for stress test in a 2-part stress, stress test tomorrow, resting tod ay, to evaluate and rule out evidence of any significant ischemia. If ischemia is seen, we will pro ceed with coronary angiography. Otherwise, will continue with medical therapy. We will follow the renal function closely. Monitor on telemetry. Digoxin will be continued. HIMA and ARB still on hol d due to renal insufficiency. Dictated By: KELLEY CONWAY MD AV/JOSI Conf#: [id number] DID#: [id number] CC: ISAAC MASSEY CUSTOMER SERVICE AND SALES CONSULTANT;*End*
[2016-08-19 07:44] LABS: BASOPHIL # 0.1 10^3/ul (0.0-0.1); BASOPHILS % 0.6 % (0.0-2.0); EOSINOPHILS # 0.2 10^3/ul (0.0-0.5); EOSINOPHILS % 1.8 % (0.0-7.0); HEMATOCRIT 56.7 % (42.0-52.0); HEMOGLOBIN 17.8 g/dl (14.0-18.0); LYMPHOCYTES # 2.1 10^3/ul (0.8-2.9); LYMPHOCYTES % 23.9 % (15.0-51.0); MEAN CORPUSCULAR HEMOGLOBIN 29.8 pg (29.0-33.0); MEAN CORPUSCULAR HGB CONC 31.4 g/dl (32.0-37.0); MEAN PLATELET VOLUME 11.5 fl (7.4-10.4); MONOCYTE # 1.1 10^3/ul (0.3-0.9); MONOCYTES % 12.6 % (0.0-11.0); NEUTROPHIL # 5.3 10^3/ul (1.6-7.5); NEUTROPHILS % 60.6 % (39.0-77.0); PLATELET COUNT 220 10^3/UL (140-415); RED BLOOD COUNT 5.97 10^6/ul (4.70-6.10); RED CELL DISTRIBUTION WIDTH 13.4 % (11.5-14.5); WHITE BLOOD COUNT 8.7 10^3/ul (4.8-10.8)
[2016-08-19] MEDS ORDERED: REGADENOSON 0.4 MG/5 ML SYG ONE (08:04)
[2016-08-19 08:06] LABS: ALBUMIN/GLOBULIN RATIO 1.48; BILIRUBIN,INDIRECT 1.1 mg/dl (0-1.1); BILIRUBIN,TOTAL 1.1 mg/dl (0.2-1.3); CALCIUM 8.5 mg/dl (8.4-10.2); CREATININE 1.49 mg/dl (0.61-1.24); MAGNESIUM 2.2 mg/dl (1.7-2.5); POTASSIUM 4.3 mmol/L (3.5-5.1); TOTAL PROTEIN 6.7 g/dl (6.1-8.1)
[2016-08-19] MEDS: POLYETHYLENE GLYCOL 17 GM PACKET PO SCH ×2 (09:00→21:00)
[2016-08-19] MEDS: ASPIRIN 81 MG TAB PO SCH (09:39)
[2016-08-19] MEDS: SPIRONOLACTONE 25 MG TAB PO SCH (09:39)
[2016-08-19] MEDS: FAMOTIDINE 20 MG TAB PO SCH ×2 (09:39→21:15)
[2016-08-19] MEDS: FUROSEMIDE 40 MG INJ IV SCH (09:40)
--- NOTE | 2016-08-19 09:44 | RADRPT ---
PROCEDURE: Lexiscan myocardial perfusion study CLINICAL INDICATION: 56 -year-old patient complaining of chest pain. TECHNIQUE: Lexiscan 0.4 mg intravenously separate acquisition gated myocardial perfusion SPECT usi ng Tc 99m Myoview 38.1 mCi intravenously at stress and Tc-99m Myoview, 12.2 mCi intravenously at res t was performed using the rest/stress sequence. Poststress Myoview SPECT images were obtained in th e supine position. COMPARISON: No prior studies. FINDINGS: Perfusion images reveal a small to moderate size mild in degree predominantly reversible perfusion a bnormality in the inferoapical, distal to mid anteroseptal and distal to mid anterior kimbrough. Mild nonreversible reduction in perfusion is seen in the inferolateral wall. Lexiscan post stress gated SPECT images demonstrate moderate hypokinesis of the left ventricle. IMPRESSION: 1. The type and distribution of the scintigraphic abnormalities are most consistent with a small to moderate size predominantly reversible perfusion abnormality in the inferoapical, distal to mid ant eroseptal and distal to mid anterior kimbrough and mild nonreversible reduction in perfusion in the infe rolateral wall. 2. Moderate hypokinesis of the left ventricle 3. The left ventricle ejection fraction at stress is 24%. A call report was made to Dr. Washington at 09:40 a.m. on August 19, 2016. RPTAT: HH .Marixa Campos MD, MD Date Time Electronically viewed and signed by .Marixa Campos MD, on 08/19/2016 09:44 .L/
--- NOTE | 2016-08-19 09:57 | PN ---
DATE: 08/19/2016 CARDIOLOGY FOLLOWUP SUBJECTIVE: The patient still complains of shortness of breath and dyspnea on exertion, but improvi ng slowly. No chest pain or pressure. No palpitations. MEDICATIONS: Reviewed as per medication reconciliation, was personally reviewed. PHYSICAL EXAMINATION: VITAL SIGNS: Temperature 98.5, heart rate 91, blood pressure 133/77, respiratory rate of 19, satura ting 96%. HEENT: Normocephalic, atraumatic. No acute distress, obese gentleman. Pupils are equal. CARDIOVASCULAR: Regular rate and rhythm. Systolic murmur. PULMONARY: With no wheezes. GASTROINTESTINAL: Obese, soft, nontender. EXTREMITIES: Positive lower extremity edema. NEUROLOGIC: Awake and alert. PSYCHIATRIC: Appeared to be calm. LABORATORY DATA: Sodium 137, potassium 4.3 as of yesterday. Today's chemistry is still pending. W BC of 8.7, hemoglobin 17.8, platelets of 220. ASSESSMENT AND PLAN: 1. Congestive heart failure, acute on chronic, secondary to severe systolic dysfunction. 2. Mildly abnormal troponin, probably related to above. Rule out underlying coronary artery diseas e. 3. Renal failure, acute on chronic, . 4. Hypertension. 5. History of steroid use. 6. Polycythemia. 7. Lower extremity edema, cellulitis. RECOMMENDATIONS: Lexiscan stress test is being done today. We will follow up on the results. If a bnormal, we will proceed with coronary angiography. However, if no reversible ischemia found, we wi ll continue with aggressive medical therapy. The patient has multiple times been advised to avoid s teroids as well. Follow up with hematology/oncology recommendations. Dictated By: KELLEY MONGE/JOSI Conf#: [id number] DID#: [id number]
--- NOTE | 2016-08-19 10:24 | PN ---
DATE: 08/19/2016 SUBJECTIVE: The patient is stable, clinically improving. No acute events overnight noted. No hemo ptysis, hematemesis or hematochezia. OBJECTIVE: VITAL SIGNS: Blood pressure 133/77, respirations 19, pulse 71, temperature 98.5. I's AND O'S: The patient had 1800 in, with 1900 out. HEENT: Head is normocephalic. NECK: Supple. HEART: Regular rate. LUNGS: Showed diminished breath sounds at the base. ABDOMEN: Soft, nontender to palpation. No rebound or guarding. EXTREMITIES: Negative for clubbing or cyanosis. Positive edema. DERMATOLOGIC: No rashes. MUSCULOSKELETAL: Have no joint effusion. NEUROLOGIC: No change in exam. MEDICATIONS: The patient's medications have been reviewed. LABORATORY DATA: Shows sodium 134, potassium 4.3, BUN 18, creatinine 1.59. White count 8.7, hemogl obin 15.8, hematocrit 56.7, platelet count is 220. Urinalysis shows a microalbumin creatinine ratio of 635 mg per gram of creatinine. ASSESSMENT AND PLAN: 1. Nonoliguric acute kidney injury, with an unknown baseline creatinine. Etiology is secondary to hemodynamics, possible cardiorenal syndrome. The patient's renal function has been fluctuating, but appears to be stabilized around a creatinine of 1.5 mg/dL. At this point, will continue the curren t treatment plan, supportive care, renally dose medications, continue diuretic therapy, and monitor renal function and electrolytes closely. 2. Possible chronic kidney disease. The patient has noted proteinuria and microalbuminuria. Etiol ogy is unclear. Full workup is ongoing. SPEP, UPEP, and immunofixation has been sent. Will antici bhakta starting an HIMA inhibitor and ARB if renal function remains stable. Would otherwise continue t reating acute kidney injury as stated above. 3. Acute congestive heart failure exacerbation, systolic and diastolic. The patient is undergoing cardiac workup. Stress test is pending today, possible cardiac catheterization if positive. Contin ue medical management and follow up with cardiology. Continue diuretic therapy. 4. Acute respiratory failure secondary to CHF. Clinically improving. 5. Polycythemia. The patient has been seen by hematology. Workup ongoing. 6. Lower extremity cellulitis. Continue antibiotic regimen. 7. Mineral bone disorder. Continue to monitor calcium and phos levels. 8. Hypertensive urgency. Continue the current blood pressure regimen. Continue the current diuret ic therapy. 9. Morbid obesity. Continue dietary modification. Dictated By: MADONNA AVINA/JOSI Conf#: [id number] DID#: [id number]
--- NOTE | 2016-08-19 10:27 | PN ---
Date/Time of Note Date/Time of Note DATE: 08/19/16 TIME: 10:24 Assessment/Plan VTE Prophylaxis VTE Prophylaxis Intervention: heparin Lines/Catheters IV [facility] Peripheral IV Urinary Cath still in place: No Assessment/Plan Chief Complaint/Hosp Course 1. Acute respiratory failure. Hypoxic. Secondary to underlying congestive heart failure exacerbation. The patient will be adequately diuresed. Will provide supplemental oxygen 2. Non-ST elevation myocardial infarction. The patient on aspirin. Being followed by cardiology. Cardiac stress test showed small to moderate sized predominantly reversible perfusion abnormality in the infra-apical, distal to mid anteroseptal, and distal to mid anterior kimbrough and mild nonreversible perfusion defect in the inferolateral wall. 3. Congestive heart failure exacerbation. Acute on chronic. Systolic dysfunction. Continue Lasix as per nephrology. 4. Cardiomyopathy with ejection fraction of 25%. Etiology unclear. Patient currently on beta blockers. Cardiology following. 5. Bilateral lower extremity edema. Bilateral lower extremity venous Doppler study due for any DVT. The patient will be adequately diuresed. 6. Acute nonoliguric kidney injury. Underlying unknown baseline creatinine. Nephrotoxic drugs will be used with caution. The patient's BUN and creatinine will be monitored closely. Nephrology following. 7. Bilateral lower extremity cellulitis. The patient will be continued on appropriate antibiotics. 8. Morbid obesity. BMI of 50.8 kilograms per meter square. Weight reduction will be advised. 9. Hypertensive urgency. The patient's blood pressure is trending down. The patient's blood pressure will be lowered gradually. 10. Polycythemia. Most probably secondary to recent use of testosterone as per hematology. Status post phlebotomy. 11. Dyslipidemia. Low-cholesterol diet. 12. Fluids, electrolytes, and nutrition. Low-cholesterol, renal diet. 13. DVT prophylaxis. Subcutaneous heparin. 14. Gastrointestinal prophylaxis. Histamine 2 receptor blockers. 15. Plan. Continue telemetry monitoring. Await further cardiology recommendations. Case discussed with Dr. Thapa. Problems: Subjective 24 Hr Interval Summary Free Text/Dictation Status post cardiac stress test today. Exam/Review of Systems Vital Signs Vitals Vital Signs Date Time Temp Pulse Resp B/P Pulse Ox O2 Delivery O2 Flow Rate FiO2 08/19/16 08:00 96 08/19/16 06:58 98.5 19 133/77 96 08/19/16 03:37 6.0 08/18/16 20:00 Nasal Cannula Intake and Output 08/18/16 08/18/16 08/19/16 15:00 23:00 07:00 Intake Total 1000 ml 800 ml Output Total 350 ml 1600 ml Balance -350 ml -600 ml 800 ml Exam GENERAL: This is a morbidly obese -[place] male lying in bed in mild respiratory distress. HEENT: Head normocephalic and atraumatic. Eyes: Anicteric sclerae. Conjunctivae clear. ENT: Nasal septum is midline. Oral mucosa is dry. NECK: Supple. No JVD noticed. RESPIRATORY: Bilaterally diminished breath sounds. Minimal use of accessory muscles of respiration. CARDIAC: Regular rate and rhythm. S1 and S2 heard. ABDOMEN: Soft, nontender and nondistended. Bowel sounds positive in all 4 quadrants. GENITOURINARY: Deferred. EXTREMITIES: Bilateral lower extremity discoloration with erythema and tenderness to touch with an open wound on the right rider anteriorly. Bilateral lower extremity peripheral pulses palpable. NEUROLOGIC: The patient is awake, alert and oriented. Cranial nerves are grossly intact. Results Result Diagram: 08/19/16 0628 08/19/16 0628 Results 24 hrs Laboratory Tests Test 08/19/16 06:28 White Blood Count 8.7 Red Blood Count 5.97 Hemoglobin 17.8 Hematocrit 56.7 H Mean Corpuscular Volume 95.0 Mean Corpuscular Hemoglobin 29.8 Mean Corpuscular Hemoglobin Concent 31.4 L Red Cell Distribution Width 13.4 Platelet Count 220 Mean Platelet Volume 11.5 H Neutrophils % 60.6 Lymphocytes % 23.9 Monocytes % 12.6 H Eosinophils % 1.8 Basophils % 0.6 Nucleated Red Blood Cells % 0.0 Neutrophils # 5.3 Lymphocytes # 2.1 Monocytes # 1.1 H Eosinophils # 0.2 Basophils # 0.1 Nucleated Red Blood Cells # 0.0 Sodium Level 134 L Potassium Level 4.3 Chloride Level 101 Carbon Dioxide Level 29 Anion Gap 8 Blood Urea Nitrogen 18 Creatinine 1.49 H Glucose Level 96 Calcium Level 8.5 Magnesium Level 2.2 Total Bilirubin 1.1 Direct Bilirubin 0.00 Indirect Bilirubin 1.1 Aspartate Amino Transf (AST/SGOT) 35 Alanine Aminotransferase (ALT/SGPT) 56 Alkaline Phosphatase 72 B-Type Natriuretic Peptide 414 H Total Protein 6.7 Albumin 4.0 Globulin 2.70 Albumin/Globulin Ratio 1.48 Medications Medications Current Medications Lorazepam (Ativan) 0.5 mg Q6H PRN IV ANXIETY; Start 08/16/16 at 18:30 Ondansetron HCl (Zofran Inj) 4 mg Q6H PRN IV NAUSEA AND/OR VOMITING; Start at 18:30 Aspirin (Aspirin) 81 mg DAILY PO Last administered on 08/19/16 09:39; Admin Dose 81 MG; Start 08/17/16 at 09:00 Acetaminophen (Tylenol Tab) 650 mg Q6H PRN PO PAIN LEVEL 1-3 OR FEVER Last administered on 08/16/16 22:15; Admin Dose 650 MG; Start 08/16/16 at 18:30 Acetaminophen/ Hydrocodone Bitart ([place] (5/325)) 2 tab Q6H PRN PO PAIN LEVEL 7 -10 Last administered on 08/18/16 06:59; Admin Dose 2 TAB; Start 08/16/16 at 18 :30 Morphine Sulfate (morphine) 2 mg Q4H PRN IV PAIN LEVEL 7-10; Start 08/16/16 at 18:30 Zolpidem Tartrate (Ambien) 5 mg QHS PRN PO INSOMNIA; Start 08/16/16 at 18:30 Magnesium Hydroxide (Milk Of Mag) 30 ml DAILY PRN PO CONSTIPATION; Start at 18:30 Bisacodyl (Dulcolax) 5 mg DAILY PRN PO CONSTIPATION; Start 08/16/16 at 18:30 Famotidine (Pepcid) 20 mg Q12 PO Last administered on 08/19/16 09:39; Admin Dose 20 MG; Start 08/16/16 at 21:00 Heparin Sodium (Porcine) (Heparin (5000 Units/0.5 ml)) 5,000 unit Q8 SC Last administered on 08/19/16 06:38; Admin Dose 5,000 UNIT; Start 08/16/16 at 22:00 Cephalexin (Keflex) 500 mg Q8 PO Last administered on 08/18/16 21:08; Admin Dose 500 MG; Start 08/16/16 at 22:00 Polyethylene Glycol (Miralax) 17 gm BID PO Last administered on 08/18/16 08:39 ; Admin Dose 17 GM; Start 08/16/16 at 21:00 Furosemide (Lasix) 40 mg DAILY IV Last administered on 08/19/16 09:40; Admin Dose 40 MG; Start 08/17/16 at 09:00 Hydralazine HCl (Apresoline) 10 mg Q6H PRN IV SBP>170; Start 08/16/16 at 18:30 Hydralazine HCl (Apresoline) 25 mg Q6 PO Last administered on 08/19/16 00:35; Admin Dose 25 MG; Start 08/17/16 at 18:00 Spironolactone (Aldactone) 25 mg DAILY PO Last administered on 08/19/16 09:39; Admin Dose 25 MG; Start 08/17/16 at 16:30 Digoxin (Digoxin) 0.125 mg DAILY@13 PO Last administered on 08/18/16 12:40; Admin Dose 0.125 MG; Start 08/18/16 at 13:00 Carvedilol (Coreg) 6.25 mg BID PO Last administered on 08/19/16 09:44; Admin Dose 6.25 MG; Start 08/18/16 at 09:00 ISAAC MASSEY NP Aug 19, 2016 10:27
--- NOTE | 2016-08-19 11:28 | TMLRPT ---
DATE: 08/19/2016 LEXISCAN STRESS TEST INDICATION: CVA cardiomyopathy with normal troponins, right coronary artery disease. DESCRIPTION: Lexiscan was performed as per protocol. FINDINGS: 1. Baseline EKG showed normal sinus rhythm with ____ T wave abnormality. Left axis deviation. 2. Heart at baseline is 89, blood pressure 133/81. Heart rate at peak stress is 98, blood pressure 137/70. 3. No significant ischemic ST changes or arrhythmia is seen. CONCLUSION: Completion of Lexiscan and stress test, as per protocol. Please see nuclear medicine res ults for final report. Dictated By: KELLEY CONWAY MD AV/NTS Conf#: [id number] DID#: [id number] CC: ISAAC MASSEY PROFESSIONAL SERVICES SPECIALIST;*End*
--- NOTE | 2016-08-19 13:10 | CONS ---
Date/Time of Note Date/Time of Note DATE: 08/19/16 TIME: 13:08 Assessment/Plan Assessment/Plan Chief Complaint/Hosp Course The patient is a 56 year old male who states that he has no past medical history , however has not been seen by a physician on a regular basis, who had been self -injecting testosterone every week for the last 6 weeks, last injection 2 weeks ago, not under the direction of a physician who presented with an NSTEMI and found to have cardiomyopathy with Ef 25%. Hematology asked to evaluate patient for polycythemia with hemoglobin of 19.1 and hematocrit of 61.3. 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 No known prior pulmonary issues, no known sleep apnea or snoring. - I doubt primary polycythemia, however will check epo level (would be suppressed if primary polycythemia) and JAK2 level. - Although the role of phlebotomy is not as well defined in the setting of testosterone-induced polycythemia, I do believe it would beneficial in this setting given that he presenting with NSTEMI which was likely caused by increase in blood viscosity which is a risk factor for thrombosis and stroke. Status post phlebotomy with 500 cc removed 08/18 with decrease in Hct to 56, plan to repeat therapeutic phlebotomy today. I have called [facility] ) to perform therapeutic phlebotomy today to remove 500 cc blood via peripheral IV. - Would recommend work-up for traditional risk factors for CV disease such as HLD, DM if not already done as patient had not seen a physician in a long time - Patient already on aspirin which will help decrease risk of thrombosis - Also sent SPEP/UPEP/immunofixation and kappa/lambda light chains to evaluate for rare causes of cardiomyopathy such as amyloidosis however less likely - pending. Problems: Consultation Date/Type/Reason Admit Date/Time August 16, 2016 at 17:35 Initial Consult Date 08/18/16 Type of Consultation: Hematology 24 HR Interval Summary Free Text/Dictation Patient tolerated phlebotomy well, no CP or SOB currently. Exam/Review of Systems Vital Signs Vitals Vital Signs Date Time Temp Pulse Resp B/P Pulse Ox O2 Delivery O2 Flow Rate FiO2 08/19/16 12:00 80 08/19/16 11:21 98.0 18 138/70 98 08/19/16 03:37 6.0 08/18/16 20:00 Nasal Cannula Intake and Output 08/18/16 08/18/16 08/19/16 15:00 23:00 07:00 Intake Total 1000 ml 800 ml Output Total 350 ml 1600 ml Balance -350 ml -600 ml 800 ml Exam Constitutional: alert, obese, oriented Psych: no complaints Head: normocephalic Eyes: nl conjunctiva Neck: supple Respiratory: clear to auscultation Cardiovascular: regular rate and rhythm Gastrointestinal: non-tender, soft Musculoskeletal: swelling (abrasions on bilateral lower extremities) Neurological: PATCH SANDER II-XII intact Results Result Diagram: 08/19/1628 08/19/16 0628 Results 24 hrs Laboratory Tests Test 08/19/16 06:28 White Blood Count 8.7 Red Blood Count 5.97 Hemoglobin 17.8 Hematocrit 56.7 H Mean Corpuscular Volume 95.0 Mean Corpuscular Hemoglobin 29.8 Mean Corpuscular Hemoglobin Concent 31.4 L Red Cell Distribution Width 13.4 Platelet Count 220 Mean Platelet Volume 11.5 H Neutrophils % 60.6 Lymphocytes % 23.9 Monocytes % 12.6 H Eosinophils % 1.8 Basophils % 0.6 Nucleated Red Blood Cells % 0.0 Neutrophils # 5.3 Lymphocytes # 2.1 Monocytes # 1.1 H Eosinophils # 0.2 Basophils # 0.1 Nucleated Red Blood Cells # 0.0 Sodium Level 134 L Potassium Level 4.3 Chloride Level 101 Carbon Dioxide Level 29 Anion Gap 8 Blood Urea Nitrogen 18 Creatinine 1.49 H Glucose Level 96 Calcium Level 8.5 Magnesium Level 2.2 Total Bilirubin 1.1 Direct Bilirubin 0.00 Indirect Bilirubin 1.1 Aspartate Amino Transf (AST/SGOT) 35 Alanine Aminotransferase (ALT/SGPT) 56 Alkaline Phosphatase 72 B-Type Natriuretic Peptide 414 H Total Protein 6.7 Albumin 4.0 Globulin 2.70 Albumin/Globulin Ratio 1.48 Medications Medications Current Medications Lorazepam (Ativan) 0.5 mg Q6H PRN IV ANXIETY; Start 08/16/16 at 18:30 Ondansetron HCl (Zofran Inj) 4 mg Q6H PRN IV NAUSEA AND/OR VOMITING; Start at 18:30 Aspirin (Aspirin) 81 mg DAILY PO Last administered on 08/19/16t 09:39; Admin Dose 81 MG; Start 08/17/16 at 09:00 Acetaminophen (Tylenol Tab) 650 mg Q6H PRN PO PAIN LEVEL 1-3 OR FEVER Last administered on 08/16/16 22:15; Admin Dose 650 MG; Start 08/16/16 at 18:30 Acetaminophen/ Hydrocodone Bitart ([place] (5/325)) 2 tab Q6H PRN PO PAIN LEVEL 7 -10 Last administered on 08/18/16 06:59; Admin Dose 2 TAB; Start 08/16/16 at 18 :30 Morphine Sulfate (morphine) 2 mg Q4H PRN IV PAIN LEVEL 7-10; Start 08/16/16 at 18:30 Zolpidem Tartrate (Ambien) 5 mg QHS PRN PO INSOMNIA; Start 08/16/16 at 18:30 Magnesium Hydroxide (Milk Of Mag) 30 ml DAILY PRN PO CONSTIPATION; Start at 18:30 Bisacodyl (Dulcolax) 5 mg DAILY PRN PO CONSTIPATION; Start 08/16/16 at 18:30 Famotidine (Pepcid) 20 mg Q12 PO Last administered on 08/19/16 09:39; Admin Dose 20 MG; Start 08/16/16 at 21:00 Heparin Sodium (Porcine) (Heparin (5000 Units/0.5 ml)) 5,000 unit Q8 SC Last administered on 08/19/16 06:38; Admin Dose 5,000 UNIT; Start 08/16/16 at 22:00 Cephalexin (Keflex) 500 mg Q8 PO Last administered on 08/18/16 21:08; Admin Dose 500 MG; Start 08/16/16 at 22:00 Polyethylene Glycol (Miralax) 17 gm BID PO Last administered on 08/18/16 08:39 ; Admin Dose 17 GM; Start 08/16/16 at 21:00 Furosemide (Lasix) 40 mg DAILY IV Last administered on 08/19/16 09:40; Admin Dose 40 MG; Start 08/17/16 at 09:00 Hydralazine HCl (Apresoline) 10 mg Q6H PRN IV SBP>170; Start 08/16/16 at 18:30 Hydralazine HCl (Apresoline) 25 mg Q6 PO Last administered on 08/19/16 00:35; Admin Dose 25 MG; Start 08/17/16 at 18:00 Spironolactone (Aldactone) 25 mg DAILY PO Last administered on 08/19/16 09:39; Admin Dose 25 MG; Start 08/17/16 at 16:30 Digoxin (Digoxin) 0.125 mg DAILY@13 PO Last administered on 08/18/16 12:40; Admin Dose 0.125 MG; Start 08/18/16 at 13:00 Carvedilol (Coreg) 6.25 mg BID PO Last administered on 08/19/16 09:44; Admin Dose 6.25 MG; Start 08/18/16 at 09:00 STAN HILL MD Aug 19, 2016 13:10
[2016-08-19] MEDS: DIGOXIN 0.125 MG TAB PO SCH (13:15)
[2016-08-19 14:36] LABS: CREATININE, RANDOM URINE 137 mg/dL (20-370); PROTEIN/CREATININE RATIO 555 mg/g creat (22-128)
[2016-08-19] MEDS: ACETYLCYSTEINE 600 MG CAP PO SCH (21:15)
[2016-08-19 23:10] LABS: ALBUMIN 3.6 g/dL (3.8-4.8)
[2016-08-20] VITALS (32 sets, daily range): BP systolic 11–159; BP diastolic 59–86; PULSE 72–88; RESP 17–27
[2016-08-20] MEDS: CEPHALEXIN 500 MG CAP PO SCH ×3 (06:09→21:23)
[2016-08-20] MEDS: HEPARIN 5,000 UNIT/0.5 ML VIAL SC SCH ×3 (06:40→21:26)
[2016-08-20 07:11] LABS: ADD SCAN DIFF NO
[2016-08-20 07:18] LABS: BASOPHIL # 0.1 10^3/ul (0.0-0.1); BASOPHILS % 0.6 % (0.0-2.0); EOSINOPHILS # 0.2 10^3/ul (0.0-0.5); EOSINOPHILS % 2.1 % (0.0-7.0); HEMOGLOBIN 17.5 g/dl (14.0-18.0); LYMPHOCYTES # 2.2 10^3/ul (0.8-2.9); LYMPHOCYTES % 28.4 % (15.0-51.0); MEAN CORPUSCULAR HEMOGLOBIN 29.1 pg (29.0-33.0); MEAN CORPUSCULAR HGB CONC 30.7 g/dl (32.0-37.0); MEAN CORPUSCULAR VOLUME 94.8 fl (82.0-101.0); MEAN PLATELET VOLUME 11.6 fl (7.4-10.4); MONOCYTES % 13.1 % (0.0-11.0); NEUTROPHIL # 4.3 10^3/ul (1.6-7.5); NEUTROPHILS % 55.4 % (39.0-77.0); PLATELET COUNT 197 10^3/UL (140-415); RED BLOOD COUNT 6.01 10^6/ul (4.70-6.10); RED CELL DISTRIBUTION WIDTH 13.5 % (11.5-14.5); WHITE BLOOD COUNT 7.7 10^3/ul (4.8-10.8)
[2016-08-20 07:36] LABS: INR 1.02; PROTIME 13.4 Sec (12.2-14.2)
[2016-08-20 07:43] LABS: ALBUMIN/GLOBULIN RATIO 1.48; BILIRUBIN,INDIRECT 1.2 mg/dl (0-1.1); BILIRUBIN,TOTAL 1.2 mg/dl (0.2-1.3); CALCIUM 8.6 mg/dl (8.4-10.2); CREATININE 1.42 mg/dl (0.61-1.24); MAGNESIUM 2.2 mg/dl (1.7-2.5); POTASSIUM 4.4 mmol/L (3.5-5.1); TOTAL PROTEIN 6.7 g/dl (6.1-8.1)
[2016-08-20] MEDS: POLYETHYLENE GLYCOL 17 GM PACKET PO SCH ×2 (09:00→21:00)
[2016-08-20] MEDS: ASPIRIN 81 MG TAB PO SCH (09:25)
[2016-08-20] MEDS: SPIRONOLACTONE 25 MG TAB PO SCH (09:25)
[2016-08-20] MEDS: FAMOTIDINE 20 MG TAB PO SCH ×2 (09:25→21:22)
[2016-08-20] MEDS: FUROSEMIDE 40 MG INJ IV SCH (09:26)
[2016-08-20] MEDS: ACETYLCYSTEINE 600 MG CAP PO SCH ×2 (09:26→21:22)
--- NOTE | 2016-08-20 09:41 | PN ---
Date/Time of Note Date/Time of Note DATE: 08/20/16 TIME: 09:39 Assessment/Plan VTE Prophylaxis VTE Prophylaxis Intervention: heparin Lines/Catheters IV [facility] Peripheral IV Urinary Cath still in place: No Assessment/Plan Chief Complaint/Hosp Course 1. Acute respiratory failure. Hypoxic. Secondary to underlying congestive heart failure exacerbation. The patient will be adequately diuresed. Will provide supplemental oxygen 2. Non-ST elevation myocardial infarction. The patient on aspirin. Being followed by cardiology. Cardiac stress test showed small to moderate sized predominantly reversible perfusion abnormality in the infra-apical, distal to mid anteroseptal, and distal to mid anterior kimbrough and mild nonreversible perfusion defect in the inferolateral wall. Plan for left heart catheterization. 3. Congestive heart failure exacerbation. Acute on chronic. Systolic dysfunction. Continue Lasix as per nephrology. 4. Cardiomyopathy with ejection fraction of 25%. Etiology unclear. Patient currently on beta blockers. Cardiology following. 5. Bilateral lower extremity edema. Bilateral lower extremity venous Doppler study due for any DVT. The patient will be adequately diuresed. 6. Acute nonoliguric kidney injury. Underlying unknown baseline creatinine. Nephrotoxic drugs will be used with caution. The patient's BUN and creatinine will be monitored closely. Nephrology following. 7. Bilateral lower extremity cellulitis. The patient will be continued on appropriate antibiotics. 8. Morbid obesity. BMI of 50.8 kilograms per meter square. Weight reduction will be advised. 9. Hypertensive urgency. The patient's blood pressure is trending down. The patient's blood pressure will be lowered gradually. 10. Polycythemia. Most probably secondary to recent use of testosterone as per hematology. Status post phlebotomy. 11. Dyslipidemia. Low-cholesterol diet. 12. Fluids, electrolytes, and nutrition. Low-cholesterol, renal diet. 13. DVT prophylaxis. Subcutaneous heparin. 14. Gastrointestinal prophylaxis. Histamine 2 receptor blockers. 15. Plan. Continue telemetry monitoring. Await left heart catheterization. Case discussed with Dr. Thapa. Problems: Subjective 24 Hr Interval Summary Free Text/Dictation Denies any chest pain. Exam/Review of Systems Vital Signs Vitals Vital Signs Date Time Temp Pulse Resp B/P Pulse Ox O2 Delivery O2 Flow Rate FiO2 08/20/16 08:07 88 08/20/16 08:01 6.0 08/20/16 07:20 98.7 19 111/63 97 08/19/16 23:23 Nasal Cannula Intake and Output 08/19/16 08/19/16 08/20/16 15:00 23:00 07:00 Intake Total 600 ml 650 ml Output Total 1500 ml 1200 ml Balance -900 ml -550 ml Exam GENERAL: This is a morbidly obese -Armenian male lying in bed in mild respiratory distress. HEENT: Head normocephalic and atraumatic. Eyes: Anicteric sclerae. Conjunctivae clear. ENT: Nasal septum is midline. Oral mucosa is dry. NECK: Supple. No JVD noticed. RESPIRATORY: Bilaterally diminished breath sounds. No use of accessory muscles of respiration. CARDIAC: Regular rate and rhythm. S1 and S2 heard. ABDOMEN: Soft, nontender and nondistended. Bowel sounds positive in all 4 quadrants. GENITOURINARY: Deferred. EXTREMITIES: Bilateral lower extremity discoloration with erythema and tenderness to touch with an open wound on the right rider anteriorly. Bilateral lower extremity peripheral pulses palpable. NEUROLOGIC: The patient is awake, alert and oriented. Cranial nerves are grossly intact. Results Result Diagram: 08/20/16 0600 08/20/16 0600 Results 24 hrs Laboratory Tests Test 08/20/16 06:00 White Blood Count 7.7 Red Blood Count 6.01 Hemoglobin 17.5 Hematocrit 57.0 H Mean Corpuscular Volume 94.8 Mean Corpuscular Hemoglobin 29.1 Mean Corpuscular Hemoglobin Concent 30.7 L Red Cell Distribution Width 13.5 Platelet Count 197 Mean Platelet Volume 11.6 H Neutrophils % 55.4 Lymphocytes % 28.4 Monocytes % 13.1 H Eosinophils % 2.1 Basophils % 0.6 Nucleated Red Blood Cells % 0.0 Neutrophils # 4.3 Lymphocytes # 2.2 Monocytes # 1.0 H Eosinophils # 0.2 Basophils # 0.1 Nucleated Red Blood Cells # 0.0 Prothrombin Time 13.4 Prothrombin Time Ratio 1.0 INR International Normalized Ratio 1.02 Sodium Level 138 Potassium Level 4.4 Chloride Level 99 Carbon Dioxide Level 30 Anion Gap 13 Blood Urea Nitrogen 17 Creatinine 1.42 H Glucose Level 97 Calcium Level 8.6 Magnesium Level 2.2 Total Bilirubin 1.2 Direct Bilirubin 0.00 Indirect Bilirubin 1.2 H Aspartate Amino Transf (AST/SGOT) 31 Alanine Aminotransferase (ALT/SGPT) 50 Alkaline Phosphatase 65 B-Type Natriuretic Peptide 307 H Total Protein 6.7 Albumin 4.0 Globulin 2.70 Albumin/Globulin Ratio 1.48 Digoxin Level 0.6 L Medications Medications Current Medications Lorazepam (Ativan) 0.5 mg Q6H PRN IV ANXIETY; Start 08/16/16 at 18:30 Ondansetron HCl (Zofran Inj) 4 mg Q6H PRN IV NAUSEA AND/OR VOMITING; Start at 18:30 Aspirin (Aspirin) 81 mg DAILY PO Last administered on 08/20/16 09:25; Admin Dose 81 MG; Start 08/17/16 at 09:00 Acetaminophen (Tylenol Tab) 650 mg Q6H PRN PO PAIN LEVEL 1-3 OR FEVER Last administered on 08/16/16 22:15; Admin Dose 650 MG; Start 08/16/16 at 18:30 Acetaminophen/ Hydrocodone Bitart ([place] (5/325)) 2 tab Q6H PRN PO PAIN LEVEL 7 -10 Last administered on 08/18/16 06:59; Admin Dose 2 TAB; Start 08/16/16 at 18 :30 Morphine Sulfate (morphine) 2 mg Q4H PRN IV PAIN LEVEL 7-10; Start 08/16/16 at 18:30 Zolpidem Tartrate (Ambien) 5 mg QHS PRN PO INSOMNIA; Start 08/16/16 at 18:30 Magnesium Hydroxide (Milk Of Mag) 30 ml DAILY PRN PO CONSTIPATION; Start at 18:30 Bisacodyl (Dulcolax) 5 mg DAILY PRN PO CONSTIPATION; Start 08/16/16 at 18:30 Famotidine (Pepcid) 20 mg Q12 PO Last administered on 08/20/16 09:25; Admin Dose 20 MG; Start 08/16/16 at 21:00 Heparin Sodium (Porcine) (Heparin (5000 Units/0.5 ml)) 5,000 unit Q8 SC Last administered on 08/20/16 06:40; Admin Dose 5,000 UNIT; Start 08/16/16 at 22:00 Cephalexin (Keflex) 500 mg Q8 PO Last administered on 08/20/16 06:09; Admin Dose 500 MG; Start 08/16/16 at 22:00 Polyethylene Glycol (Miralax) 17 gm BID PO Last administered on 08/18/16 08:39 ; Admin Dose 17 GM; Start 08/16/16 at 21:00 Furosemide (Lasix) 40 mg DAILY IV Last administered on 08/20/16 09:26; Admin Dose 40 MG; Start 08/17/16 at 09:00 Hydralazine HCl (Apresoline) 10 mg Q6H PRN IV SBP>170; Start 08/16/16 at 18:30 Hydralazine HCl (Apresoline) 25 mg Q6 PO Last administered on 08/20/16 06:10; Admin Dose 25 MG; Start 08/17/16 at 18:00 Spironolactone (Aldactone) 25 mg DAILY PO Last administered on 08/20/16 09:25; Admin Dose 25 MG; Start 08/17/16 at 16:30 Digoxin (Digoxin) 0.125 mg DAILY@13 PO Last administered on 08/19/16 13:15; Admin Dose 0.125 MG; Start 08/18/16 at 13:00 Carvedilol (Coreg) 6.25 mg BID PO Last administered on 08/20/16 09:26; Admin Dose 6.25 MG; Start 08/18/16 at 09:00 Acetylcysteine (Nac) 600 mg BID PO Last administered on 08/20/16 09:26; Admin Dose 600 MG; Start 08/19/16 at 21:00 ISAAC MASSEY NP Aug 20, 2016 09:41
--- NOTE | 2016-08-20 09:47 | PN ---
DATE: 08/20/2016 SUBJECTIVE: The patient is pending cardiac catheterization today. No other events noted. No hemop tysis, hematemesis or hematochezia. OBJECTIVE: VITAL SIGNS: Blood pressure is 111/63, respirations 19, pulse 83, temperature 98.7. HEENT: Head is normocephalic. NECK: Supple. HEART: Regular rate. LUNGS: Showed diminished breath sounds at the base. ABDOMEN: Soft, nontender to palpation. No rebound or guarding. EXTREMITIES: Negative for clubbing or cyanosis. No edema. DERMATOLOGIC: No rashes. MUSCULOSKELETAL: Have no joint effusion. NEUROLOGIC: No change in exam. MEDICATIONS: The patient's medications have been reviewed. LABORATORY DATA: Shows sodium 138, potassium 4.4, chloride 99, BUN 17, creatinine 1.42. White coun t 7.7, hemoglobin 17.5, hematocrit 57.0, platelet count is 197. The patient's SPEP, UPEP, immunofixa tion are within normal limits. ASSESSMENT AND PLAN: 1. Nonoliguric acute kidney injury, with unknown baseline creatinine. Etiology is secondary to hem odynamics, possible cardiorenal syndrome. The patient's renal function has been fluctuating, but ov erall stable. Will continue the current treatment plan, supportive care, renally dose all meds, co ntinue diuretic therapy. 2. Possible chronic kidney disease. Etiology is unclear, may be secondary to hypertensive nephrosc lerosis. The patient's urinalysis was bland. SPEP, UPEP, and immunofixation were negative. At thi s point, continue to monitor. Anticipate starting an HIMA inhibitor or ARB once the patient is statu s post cardiac catheterization. 3. Acute congestive heart failure exacerbation, systolic and diastolic. The patient has a positive stress test, pending cardiac catheterization. Continue to monitor. Follow up with cardiology. 4. Acute respiratory failure secondary to CHF. Clinically improving. Continue medical management. 5. Polycythemia. Workup ongoing by hematology. 6. Lower extremity cellulitis. Continue the current antibiotic regimen. 7. Mineral bone disorder. Continue to monitor calcium and phosphorus levels. 8. Hypertension. Continue the current blood pressure regimen. 9. Morbid obesity. Continue dietary modification. Dictated By: MADONNA AVINA/JOSI Conf#: [id number] DID#: [id number]
[2016-08-20] MEDS: DIGOXIN 0.125 MG TAB PO SCH (12:46)
[2016-08-20] MEDS ORDERED: LIDOCAINE 1% (MPF) 5 ML VIAL SC ONE (14:00)
[2016-08-20] MEDS ORDERED: VERAPAMIL 5 MG INJ ONE (16:31)
[2016-08-20] MEDS ORDERED: NITROGLYCERIN (IC) 100 MCG/ML INJ ONE (16:31)
[2016-08-20] MEDS ORDERED: HEPARIN 1000 UNITS/ML 10 ML INJ ONE (16:31)
[2016-08-20] MEDS ORDERED: IODIXANOL LOCM 100 ML BTL ONE (16:31)
[2016-08-20] MEDS ORDERED: LIDOCAINE 1% (MDV) 20 ML INJ ONE (16:31)
[2016-08-20] MEDS ORDERED: MIDAZOLAM 1 MG/ML 2 ML INJ ONE (16:32)
[2016-08-20] MEDS ORDERED: FENTAnyl 50 MCG/ML VIAL ONE (16:32)
--- NOTE | 2016-08-20 16:50 | PN ---
DATE: 08/20/2016 CARDIOLOGY FOLLOWUP NOTE. SUBJECTIVE: The patient with no chest pain or pressure. The pain has significantly improved. His tory was reviewed. Patient had episodes of nonsustained VT. No palpitation. Lower extremities are about the same. MEDICATIONS: Reviewed as per medication reconciliation, was personally reviewed, which include: 1. Mucomyst. 2. Digoxin. 3. Coreg 6.25. 4. Hydralazine. 5. Aldactone. 6. Aspirin. 7. Lasix daily. 8. Subcutaneous heparin. 9. Pepcid. 10. MiraLax. PHYSICAL EXAMINATION: VITAL SIGNS: Temperature 98, heart rate of 76, blood pressure 156/74, respiration rate of 18, satur ating 95%. HEENT: Normocephalic, atraumatic. Morbidly obese gentleman. CARDIOVASCULAR: Regular rate and rhythm, systolic murmur. PULMONARY: With no wheezes heard. Minimal rhonchi at the base. GASTROINTESTINAL: Obese, soft, nontender. EXTREMITIES: Positive diffuse lower extremity edema. NEUROLOGIC: Awake and alert. PSYCHIATRIC: Appears to be calm. LABORATORY: WBC of 7.7, hemoglobin 17.5, platelets 197. Sodium 138, potassium 4.4, BUN of 17, crea tinine 1.42, glucose of 97. BNP of 307. Nuclear stress test done yesterday showed ejection fractio n of 24%, small to moderate size predominant ____perfusion abnormality in the inferoapical, distal t o mid anteroseptal, distal to mid anterior kimbrough with mild nonreversible reduction in the inferolate ral wall. ASSESSMENT AND PLAN: 1. Congestive heart failure, acute on chronic systolic dysfunction. 2. Acute coronary syndrome, abnormal troponins, marked abnormal stress test with high risk features including severe cardiomyopathy and evidence of significant reversible ischemia. 3. Hypertension. 4. Polycythemia. 5. Lower extremity edema. 6. Cellulitis. 7. History of steroid use. 8. Renal insufficiency. RECOMMENDATIONS: The patient's renal function has stabilized. I will continue with the current car diac care. Given his abnormal stress test finding. abnormal troponin and his severe cardiomyopathy, he will be going to undergo left heart catheterization, selective right and left coronary angiograp hy, possible percutaneous coronary intervention. Risks and alternatives discussed with the patient extensively in detail. This included ____infection, vascular complication, bleeding complication, M I, stroke, arrhythmia, , renal failure, etc., discussed with the patient. The increased risk o f vascular complication, renal failure due to his morbid obesity as well as chronic kidney disease w as also discussed with the patient. The risk of cardiac complication due to severe cardiomyopathy a lso discussed with the patient. Patient consented to procedure. We will proceed with the procedure today. Dictated By: KELLEY CONWAY MD AV/JOSI Conf#: [id number] DID#: [id number] CC: MADONNA MUSTAFA DO; ISAAC MASSEY DIRECTOR [employer];*EndCC*
--- NOTE | 2016-08-20 16:58 | CONS ---
Date/Time of Note Date/Time of Note DATE: 08/20/16 TIME: 16:56 Assessment/Plan Assessment/Plan Chief Complaint/Hosp Course The patient is a 56 year old male who states that he has no past medical history , however has not been seen by a physician on a regular basis, who had been self -injecting testosterone every week for the last 6 weeks, last injection 2 weeks ago, not under the direction of a physician who presented with an NSTEMI and found to have cardiomyopathy with Ef 25%. Cardiac stress test showed small to moderate sized predominantly reversible perfusion abnormality in the infra- apical, distal to mid anteroseptal, and distal to mid anterior kimbrough and mild nonreversible perfusion defect in the inferolateral wall. Plan for left heart catheterization. Hematology asked to evaluate patient for polycythemia with hemoglobin of 19.1 and hematocrit of 61.3. 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 No known prior pulmonary issues, no known sleep apnea or snoring. - I doubt primary polycythemia, however will check epo level (would be suppressed if primary polycythemia) and JAK2 level - pending - Although the role of phlebotomy is not as well defined in the setting of testosterone-induced polycythemia, I do believe it would beneficial in this setting given that he presenting with NSTEMI which was likely caused by increase in blood viscosity which is a risk factor for thrombosis and stroke. Status post phlebotomy with 500 cc removed 08/18 with decrease in Hct to 56. Unfortunately, [facility] is unable to provide further service as no longer contracted with [facility]. Patient can follow-up with me after discharge and phlebotomy can be performed as an outpatient if needed. - Would recommend work-up for traditional risk factors for CV disease such as HLD, DM if not already done as patient had not seen a physician in a long time - Patient already on aspirin which will help decrease risk of thrombosis - Also sent SPEP/UPEP/immunofixation and kappa/lambda light chains to evaluate for rare causes of cardiomyopathy such as amyloidosis however less likely. SPEP only showed decreased albumin, UPEP neg, urine and serum NIKKIE negative, pending kappa/lambda light chains Problems: Consultation Date/Type/Reason Admit Date/Time August 16, 2016 at 17:35 Initial Consult Date 08/18/16 Type of Consultation: Hematology 24 HR Interval Summary Free Text/Dictation Patient is awaiting cardiac catheterization. No complaints today. Exam/Review of Systems Vital Signs Vitals Vital Signs Date Time Temp Pulse Resp B/P Pulse Ox O2 Delivery O2 Flow Rate FiO2 08/20/16 16:00 78 08/20/16 15:37 98.0 18 156/74 95 08/20/16 08:01 6.0 08/19/16 23:23 Nasal Cannula Intake and Output 08/19/16 08/19/16 08/20/16 15:00 23:00 07:00 Intake Total 600 ml 650 ml Output Total 1500 ml 1200 ml Balance -900 ml -550 ml Results Result Diagram: 08/20/16 0600 08/20/16 0600 Results 24 hrs Laboratory Tests Test 08/20/16 06:00 White Blood Count 7.7 Red Blood Count 6.01 Hemoglobin 17.5 Hematocrit 57.0 H Mean Corpuscular Volume 94.8 Mean Corpuscular Hemoglobin 29.1 Mean Corpuscular Hemoglobin Concent 30.7 L Red Cell Distribution Width 13.5 Platelet Count 197 Mean Platelet Volume 11.6 H Neutrophils % 55.4 Lymphocytes % 28.4 Monocytes % 13.1 H Eosinophils % 2.1 Basophils % 0.6 Nucleated Red Blood Cells % 0.0 Neutrophils # 4.3 Lymphocytes # 2.2 Monocytes # 1.0 H Eosinophils # 0.2 Basophils # 0.1 Nucleated Red Blood Cells # 0.0 Prothrombin Time 13.4 Prothrombin Time Ratio 1.0 INR International Normalized Ratio 1.02 Sodium Level 138 Potassium Level 4.4 Chloride Level 99 Carbon Dioxide Level 30 Anion Gap 13 Blood Urea Nitrogen 17 Creatinine 1.42 H Glucose Level 97 Calcium Level 8.6 Magnesium Level 2.2 Total Bilirubin 1.2 Direct Bilirubin 0.00 Indirect Bilirubin 1.2 H Aspartate Amino Transf (AST/SGOT) 31 Alanine Aminotransferase (ALT/SGPT) 50 Alkaline Phosphatase 65 B-Type Natriuretic Peptide 307 H Total Protein 6.7 Albumin 4.0 Globulin 2.70 Albumin/Globulin Ratio 1.48 Digoxin Level 0.6 L Medications Medications Current Medications Lorazepam (Ativan) 0.5 mg Q6H PRN IV ANXIETY; Start 08/16/16 at 18:30 Ondansetron HCl (Zofran Inj) 4 mg Q6H PRN IV NAUSEA AND/OR VOMITING; Start at 18:30 Aspirin (Aspirin) 81 mg DAILY PO Last administered on 08/20/16 09:25; Admin Dose 81 MG; Start 08/17/16 at 09:00 Acetaminophen (Tylenol Tab) 650 mg Q6H PRN PO PAIN LEVEL 1-3 OR FEVER Last administered on 08/16/16 22:15; Admin Dose 650 MG; Start 08/16/16 at 18:30 Acetaminophen/ Hydrocodone Bitart ([place] (5/325)) 2 tab Q6H PRN PO PAIN LEVEL 7 -10 Last administered on 08/18/16 06:59; Admin Dose 2 TAB; Start 08/16/16 at 18 :30 Morphine Sulfate (morphine) 2 mg Q4H PRN IV PAIN LEVEL 7-10; Start 08/16/16 at 18:30 Zolpidem Tartrate (Ambien) 5 mg QHS PRN PO INSOMNIA; Start 08/16/16 at 18:30 Magnesium Hydroxide (Milk Of Mag) 30 ml DAILY PRN PO CONSTIPATION; Start at 18:30 Bisacodyl (Dulcolax) 5 mg DAILY PRN PO CONSTIPATION; Start 08/16/16 at 18:30 Famotidine (Pepcid) 20 mg Q12 PO Last administered on 08/20/16 09:25; Admin Dose 20 MG; Start 08/16/16 at 21:00 Heparin Sodium (Porcine) (Heparin (5000 Units/0.5 ml)) 5,000 unit Q8 SC Last administered on 08/20/16 06:40; Admin Dose 5,000 UNIT; Start 08/16/16 at 22:00 Cephalexin (Keflex) 500 mg Q8 PO Last administered on 08/20/16 14:41; Admin Dose 500 MG; Start 08/16/16 at 22:00 Polyethylene Glycol (Miralax) 17 gm BID PO Last administered on 08/18/16 08:39 ; Admin Dose 17 GM; Start 08/16/16 at 21:00 Furosemide (Lasix) 40 mg DAILY IV Last administered on 08/20/16 09:26; Admin Dose 40 MG; Start 08/17/16 at 09:00 Hydralazine HCl (Apresoline) 10 mg Q6H PRN IV SBP>170; Start 08/16/16 at 18:30 Hydralazine HCl (Apresoline) 25 mg Q6 PO Last administered on 08/20/16 12:47; Admin Dose 25 MG; Start 08/17/16 at 18:00 Spironolactone (Aldactone) 25 mg DAILY PO Last administered on 08/20/16 09:25; Admin Dose 25 MG; Start 08/17/16 at 16:30 Digoxin (Digoxin) 0.125 mg DAILY@13 PO Last administered on 08/20/16 12:46; Admin Dose 0.125 MG; Start 08/18/16 at 13:00 Carvedilol (Coreg) 6.25 mg BID PO Last administered on 08/20/16 09:26; Admin Dose 6.25 MG; Start 08/18/16 at 09:00 Acetylcysteine (Nac) 600 mg BID PO Last administered on 08/20/16 09:26; Admin Dose 600 MG; Start 08/19/16 at 21:00 STAN HILL MD Aug 20, 2016 16:58
[2016-08-20] MEDS ORDERED: SOD CHLORIDE 0.9% 1,000 ML IV SCH (17:29)
[2016-08-20] MEDS ORDERED: LORAZEPAM 0.5 MG TAB PO PRN (18:00)
--- NOTE | 2016-08-20 18:20 | SP ---
DATE OF PROCEDURE: 08/20/2016 NAME OF PROCEDURE: 1. Left heart catheterization, selective right and left coronary angiography using the left radial approach. 2. Conscious sedation for more than 45 minutes. CUTTING ROOM SUPERVISOR: Kelley Washington MD INDICATIONS: This is a 56-year-old gentleman undergoing diagnostic angiography, ____intervention be cause of abnormal troponins, abnormal stress test, severe cardiomyopathy and ejection fraction of ab out 24%. FINDINGS: 1. Left main coronary artery is normal. 2. Left ____is a large vessel, wraps around the apex. It is normal. It is a large diagonal ____ a lso normal. 3. Left circumflex artery has 2 obtuse marginals which ____. Also, it is normal. 4. Right coronary is a large, dominant vessel and bifurcated to PDA and posterolateral artery. 5. Right coronary artery is a normal vessel. 6. LV systolic pressure is 128. LVEDP is 21. Aortic pressure with pullback is 124/76 with no sign ificant gradient across the aortic valve. DESCRIPTION OF PROCEDURE: Written informed consent was discussed with the patient. The patient ___ _ left radial ____was performed in sterile fashion. Ultrasound guidance was used and using ____ juan carlos hnique, a 6-Thai sheath was placed in left radial artery. JR4 catheter was advanced and engaged i n the right coronary artery and angiogram was obtained. JL4 catheter was advanced in the left main coronary artery. Angiogram was obtained. Therefore, a JR4 catheter was also engaged in the left ma in, hemodynamics recorded. Pullback aortic pressure was measured. Catheter and Glidewire were minh nikos. C-arm was advanced. ____. Patient had no complications. A radial cocktail was also given an d initially in the beginning of the procedure. TOTAL CONTRAST USED: 21 mL of contrast. CONCLUSION: Coronary angiography showed no significant coronary artery disease consistent with andrew re nonischemic cardiomyopathy. RECOMMENDATIONS: Medical therapy. Dictated By: KELLEY MONGE/JOSI Conf#: [id number] DID#: [id number] CC: ISAAC MASSEY CUT OFF MACHINE HELPER;*EndCC*
[2016-08-21] VITALS (11 sets, daily range): BP systolic 113–135; BP diastolic 65–76; PULSE 72–81; RESP 18–20
[2016-08-21] MEDS: CEPHALEXIN 500 MG CAP PO SCH ×3 (05:39→21:53)
[2016-08-21] MEDS: HEPARIN 5,000 UNIT/0.5 ML VIAL SC SCH ×3 (05:45→21:58)
[2016-08-21 06:56] LABS: ADD SCAN DIFF NO
[2016-08-21 07:04] LABS: BASOPHILS % 0.6 % (0.0-2.0); EOSINOPHILS # 0.2 10^3/ul (0.0-0.5); EOSINOPHILS % 3.2 % (0.0-7.0); HEMATOCRIT 56.6 % (42.0-52.0); HEMOGLOBIN 17.3 g/dl (14.0-18.0); LYMPHOCYTES # 1.8 10^3/ul (0.8-2.9); LYMPHOCYTES % 28.1 % (15.0-51.0); MEAN CORPUSCULAR HEMOGLOBIN 29.1 pg (29.0-33.0); MEAN CORPUSCULAR HGB CONC 30.6 g/dl (32.0-37.0); MEAN CORPUSCULAR VOLUME 95.1 fl (82.0-101.0); MONOCYTE # 0.9 10^3/ul (0.3-0.9); MONOCYTES % 14.4 % (0.0-11.0); NEUTROPHIL # 3.5 10^3/ul (1.6-7.5); NEUTROPHILS % 53.4 % (39.0-77.0); PLATELET COUNT 218 10^3/UL (140-415); RED BLOOD COUNT 5.95 10^6/ul (4.70-6.10); RED CELL DISTRIBUTION WIDTH 13.5 % (11.5-14.5); WHITE BLOOD COUNT 6.5 10^3/ul (4.8-10.8)
[2016-08-21 07:27] LABS: ALBUMIN 3.9 g/dl (3.3-4.9); ALBUMIN/GLOBULIN RATIO 1.44; BILIRUBIN,INDIRECT 0.9 mg/dl (0-1.1); BILIRUBIN,TOTAL 0.9 mg/dl (0.2-1.3); CALCIUM 8.6 mg/dl (8.4-10.2); CREATININE 1.38 mg/dl (0.61-1.24); POTASSIUM 4.1 mmol/L (3.5-5.1); TOTAL PROTEIN 6.6 g/dl (6.1-8.1)
[2016-08-21 07:28] LABS: MAGNESIUM 2.2 mg/dl (1.7-2.5); PHOSPHORUS 2.8 mg/dl (2.5-4.9)
[2016-08-21] MEDS: POLYETHYLENE GLYCOL 17 GM PACKET PO SCH ×2 (09:00→21:00)
[2016-08-21] MEDS: FUROSEMIDE 40 MG INJ IV SCH (09:09)
[2016-08-21] MEDS: FAMOTIDINE 20 MG TAB PO SCH ×2 (09:09→21:53)
[2016-08-21] MEDS: ASPIRIN 81 MG TAB PO SCH (09:09)
[2016-08-21] MEDS: ACETYLCYSTEINE 600 MG CAP PO SCH ×2 (09:09→21:53)
[2016-08-21] MEDS: SPIRONOLACTONE 25 MG TAB PO SCH (09:09)
--- NOTE | 2016-08-21 09:57 | CONS ---
Date/Time of Note Date/Time of Note DATE: 08/21/16 TIME: 09:53 Consult Date/Type/Reason Admit Date/Time August 16, 2016 at 17:35 Initial Consult Date 08/18/16 Type of Consultation: neph Subjective tolerated angio. no sig disease noteed. continues good uo. No other events noted. No hemoptysis, hematemesis or hematochezia. OBJECTIVE: HEENT: Head is normocephalic. NECK: Supple. HEART: Regular rate. LUNGS: Showed diminished breath sounds at the base. ABDOMEN: Soft, nontender to palpation. No rebound or guarding. EXTREMITIES: Negative for clubbing or cyanosis. No edema. DERMATOLOGIC: No rashes. MUSCULOSKELETAL: Have no joint effusion. NEUROLOGIC: No change in exam. MEDICATIONS: The patient's medications have been reviewed. Objective Vital Signs Date Time Temp Pulse Resp B/P Pulse Ox O2 Delivery O2 Flow Rate FiO2 08/21/16 08:29 79 08/21/16 07:21 98.6 20 130/76 97 08/20/16 23:45 6.0 08/20/16 20:10 Nasal Cannula Intake and Output 08/20/16 08/20/16 08/21/16 15:00 23:00 07:00 Intake Total 240 ml 1050 ml Output Total 2650 ml 1100 ml Balance -2410 ml -50 ml Results/Medications Result Diagram: 08/21/16 0555 08/21/16 0555 Results 24 hrs Laboratory Tests Test 08/21/16 05:55 08/21/16 06:22 White Blood Count 6.5 Red Blood Count 5.95 Hemoglobin 17.3 Hematocrit 56.6 H Mean Corpuscular Volume 95.1 Mean Corpuscular Hemoglobin 29.1 Mean Corpuscular Hemoglobin Concent 30.6 L Red Cell Distribution Width 13.5 Platelet Count 218 Mean Platelet Volume 12.0 H Neutrophils % 53.4 Lymphocytes % 28.1 Monocytes % 14.4 H Eosinophils % 3.2 Basophils % 0.6 Nucleated Red Blood Cells % 0.0 Neutrophils # 3.5 Lymphocytes # 1.8 Monocytes # 0.9 Eosinophils # 0.2 Basophils # 0.0 Nucleated Red Blood Cells # 0.0 Sodium Level 141 Potassium Level 4.1 Chloride Level 104 Carbon Dioxide Level 30 Anion Gap 11 Blood Urea Nitrogen 18 Creatinine 1.38 H Glucose Level 111 Calcium Level 8.6 Total Bilirubin 0.9 Direct Bilirubin 0.00 Indirect Bilirubin 0.9 Aspartate Amino Transf (AST/SGOT) 29 Alanine Aminotransferase (ALT/SGPT) 49 Alkaline Phosphatase 59 Total Protein 6.6 Albumin 3.9 Globulin 2.70 Albumin/Globulin Ratio 1.44 Phosphorus Level 2.8 Magnesium Level 2.2 Medications Current Medications Ondansetron HCl (Zofran Inj) 4 mg Q6H PRN IV NAUSEA AND/OR VOMITING; Start at 18:30 Aspirin (Aspirin) 81 mg DAILY PO Last administered on 08/21/16 09:09; Admin Dose 81 MG; Start 08/17/16 at 09:00 Acetaminophen (Tylenol Tab) 650 mg Q6H PRN PO PAIN LEVEL 1-3 OR FEVER Last administered on 08/16/16 22:15; Admin Dose 650 MG; Start 08/16/16 at 18:30 Acetaminophen/ Hydrocodone Bitart ([place] (5/325)) 2 tab Q6H PRN PO PAIN LEVEL 7 -10 Last administered on 08/18/16 06:59; Admin Dose 2 TAB; Start 08/16/16 at 18 :30 Morphine Sulfate (morphine) 2 mg Q4H PRN IV PAIN LEVEL 7-10; Start 08/16/16 at 18:30 Zolpidem Tartrate (Ambien) 5 mg QHS PRN PO INSOMNIA; Start 08/16/16 at 18:30 Magnesium Hydroxide (Milk Of Mag) 30 ml DAILY PRN PO CONSTIPATION; Start at 18:30 Bisacodyl (Dulcolax) 5 mg DAILY PRN PO CONSTIPATION; Start 08/16/16 at 18:30 Famotidine (Pepcid) 20 mg Q12 PO Last administered on 08/21/16 09:09; Admin Dose 20 MG; Start 08/16/16 at 21:00 Heparin Sodium (Porcine) (Heparin (5000 Units/0.5 ml)) 5,000 unit Q8 SC Last administered on 08/21/16 05:45; Admin Dose 5,000 UNIT; Start 08/16/16 at 22:00 Cephalexin (Keflex) 500 mg Q8 PO Last administered on 08/21/16 05:39; Admin Dose 500 MG; Start 08/16/16 at 22:00 Polyethylene Glycol (Miralax) 17 gm BID PO Last administered on 08/18/16 08:39 ; Admin Dose 17 GM; Start 08/16/16 at 21:00 Furosemide (Lasix) 40 mg DAILY IV Last administered on 08/21/16 09:09; Admin Dose 40 MG; Start 08/17/16 at 09:00 Hydralazine HCl (Apresoline) 10 mg Q6H PRN IV SBP>170; Start 08/16/16 at 18:30 Hydralazine HCl (Apresoline) 25 mg Q6 PO Last administered on 08/21/16 05:39; Admin Dose 25 MG; Start 08/17/16 at 18:00 Spironolactone (Aldactone) 25 mg DAILY PO Last administered on 08/21/16 09:09; Admin Dose 25 MG; Start 08/17/16 at 16:30 Digoxin (Digoxin) 0.125 mg DAILY@13 PO Last administered on 08/20/16 12:46; Admin Dose 0.125 MG; Start 08/18/16 at 13:00 Carvedilol (Coreg) 6.25 mg BID PO Last administered on 08/21/16 09:09; Admin Dose 6.25 MG; Start 08/18/16 at 09:00 Acetylcysteine (Nac) 600 mg BID PO Last administered on 08/21/16 09:09; Admin Dose 600 MG; Start 08/19/16 at 21:00 Lorazepam (Ativan) 0.5 mg Q6H PRN PO ANXIETY; Start 08/20/16 at 18:00 Assessment/Plan Chief Complaint/Hosp Course 1. Nonoliguric acute kidney injury, with unknown baseline creatinine. Etiology is secondary to hemodynamics, possible cardiorenal syndrome. The patient's renal function has been fluctuating, but overall improved and appears to have tolerated contrast load. Will continue the current treatment plan, supportive care, renally dose all meds, continue diuretic therapy. Avoid nephrotoxins. all meds dosed ok. 2. Possible chronic kidney disease. Etiology is unclear, may be secondary to hypertensive nephrosclerosis. The patient's urinalysis was bland. SPEP, UPEP, and immunofixation were negative. At this point, continue to monitor. Anticipate starting an HIMA inhibitor or ARB once the patient is status post cardiac catheterization. 3. Acute congestive heart failure exacerbation, systolic and diastolic. The patient has a positive stress test, pending cardiac catheterization. Continue to monitor. Follow up with cardiology. 4. Acute respiratory failure secondary to CHF. Clinically improving. Continue medical management. 5. Polycythemia. Workup ongoing by hematology. 6. Lower extremity cellulitis. Continue the current antibiotic regimen. 7. Mineral bone disorder. Continue to monitor calcium and phosphorus levels. 8. Hypertension. Continue the current blood pressure regimen. 9. Morbid obesity. Continue dietary modification. Problems: JANUSZ BAJWA MD Aug 21, 2016 09:57
--- NOTE | 2016-08-21 12:03 | CONS ---
Date/Time of Note Date/Time of Note DATE: 08/21/16 TIME: 12:01 Assessment/Plan Assessment/Plan Chief Complaint/Hosp Course 1) Nonischemic CM 2) CHF systolic and diastolic acute and chronic 3) CRI Problems: Additional Assessment/Plan 1) continue current diuresis 2) appreciate renal input Consultation Date/Type/Reason Admit Date/Time August 16, 2016 at 17:35 Initial Consult Date 08/18/16 Type of Consultation: cv 24 HR Interval Summary Free Text/Dictation no sob, sitting upright, no chest pain Detailed Summary Respiratory: no complaints Cardiovascular: no complaints Gastrointestinal: no complaints Musculoskeletal: no complaints Skin: no complaints Neurologic: no complaints Exam/Review of Systems Vital Signs Vitals Vital Signs Date Time Temp Pulse Resp B/P Pulse Ox O2 Delivery O2 Flow Rate FiO2 08/21/16 11:21 98.0 80 20 113/65 94 08/21/16 08:20 2.0 08/20/16 20:10 Nasal Cannula Intake and Output 08/20/16 08/20/16 08/21/16 15:00 23:00 07:00 Intake Total 240 ml 1050 ml Output Total 2650 ml 1100 ml Balance -2410 ml -50 ml Exam Constitutional: alert, oriented Head: atraumatic, normocephalic Neck: jvd Respiratory: diminished breath sounds Cardiovascular: regular rate and rhythm Gastrointestinal: soft Musculoskeletal: swelling Extremities: edema, pitting pedal edema Results Result Diagram: 08/21/16 0555 08/21/16 0555 Results 24 hrs Laboratory Tests Test 08/21/16 05:55 08/21/16 06:22 White Blood Count 6.5 Red Blood Count 5.95 Hemoglobin 17.3 Hematocrit 56.6 H Mean Corpuscular Volume 95.1 Mean Corpuscular Hemoglobin 29.1 Mean Corpuscular Hemoglobin Concent 30.6 L Red Cell Distribution Width 13.5 Platelet Count 218 Mean Platelet Volume 12.0 H Neutrophils % 53.4 Lymphocytes % 28.1 Monocytes % 14.4 H Eosinophils % 3.2 Basophils % 0.6 Nucleated Red Blood Cells % 0.0 Neutrophils # 3.5 Lymphocytes # 1.8 Monocytes # 0.9 Eosinophils # 0.2 Basophils # 0.0 Nucleated Red Blood Cells # 0.0 Sodium Level 141 Potassium Level 4.1 Chloride Level 104 Carbon Dioxide Level 30 Anion Gap 11 Blood Urea Nitrogen 18 Creatinine 1.38 H Glucose Level 111 Calcium Level 8.6 Total Bilirubin 0.9 Direct Bilirubin 0.00 Indirect Bilirubin 0.9 Aspartate Amino Transf (AST/SGOT) 29 Alanine Aminotransferase (ALT/SGPT) 49 Alkaline Phosphatase 59 Total Protein 6.6 Albumin 3.9 Globulin 2.70 Albumin/Globulin Ratio 1.44 Phosphorus Level 2.8 Magnesium Level 2.2 Medications Medications Current Medications Ondansetron HCl (Zofran Inj) 4 mg Q6H PRN IV NAUSEA AND/OR VOMITING; Start at 18:30 Aspirin (Aspirin) 81 mg DAILY PO Last administered on 08/21/16 09:09; Admin Dose 81 MG; Start 08/17/16 at 09:00 Acetaminophen (Tylenol Tab) 650 mg Q6H PRN PO PAIN LEVEL 1-3 OR FEVER Last administered on 08/16/16 22:15; Admin Dose 650 MG; Start 08/16/16 at 18:30 Acetaminophen/ Hydrocodone Bitart ([place] (5/325)) 2 tab Q6H PRN PO PAIN LEVEL 7 -10 Last administered on 08/18/16 06:59; Admin Dose 2 TAB; Start 08/16/16 at 18 :30 Morphine Sulfate (morphine) 2 mg Q4H PRN IV PAIN LEVEL 7-10; Start 08/16/16 at 18:30 Zolpidem Tartrate (Ambien) 5 mg QHS PRN PO INSOMNIA; Start 08/16/16 at 18:30 Magnesium Hydroxide (Milk Of Mag) 30 ml DAILY PRN PO CONSTIPATION; Start at 18:30 Bisacodyl (Dulcolax) 5 mg DAILY PRN PO CONSTIPATION; Start 08/16/16 at 18:30 Famotidine (Pepcid) 20 mg Q12 PO Last administered on 08/21/16 09:09; Admin Dose 20 MG; Start 08/16/16 at 21:00 Heparin Sodium (Porcine) (Heparin (5000 Units/0.5 ml)) 5,000 unit Q8 SC Last administered on 08/21/16 05:45; Admin Dose 5,000 UNIT; Start 08/16/16 at 22:00 Cephalexin (Keflex) 500 mg Q8 PO Last administered on 08/21/16 05:39; Admin Dose 500 MG; Start 08/16/16 at 22:00 Polyethylene Glycol (Miralax) 17 gm BID PO Last administered on 08/18/16 08:39 ; Admin Dose 17 GM; Start 08/16/16 at 21:00 Furosemide (Lasix) 40 mg DAILY IV Last administered on 08/21/16 09:09; Admin Dose 40 MG; Start 08/17/16 at 09:00 Hydralazine HCl (Apresoline) 10 mg Q6H PRN IV SBP>170; Start 08/16/16 at 18:30 Hydralazine HCl (Apresoline) 25 mg Q6 PO Last administered on 08/21/16 05:39; Admin Dose 25 MG; Start 08/17/16 at 18:00 Spironolactone (Aldactone) 25 mg DAILY PO Last administered on 08/21/16 09:09; Admin Dose 25 MG; Start 08/17/16 at 16:30 Digoxin (Digoxin) 0.125 mg DAILY@13 PO Last administered on 08/20/16 12:46; Admin Dose 0.125 MG; Start 08/18/16 at 13:00 Carvedilol (Coreg) 6.25 mg BID PO Last administered on 08/21/16 09:09; Admin Dose 6.25 MG; Start 08/18/16 at 09:00 Acetylcysteine (Nac) 600 mg BID PO Last administered on 08/21/16 09:09; Admin Dose 600 MG; Start 08/19/16 at 21:00 Lorazepam (Ativan) 0.5 mg Q6H PRN PO ANXIETY; Start 08/20/16 at 18:00 TOI WOODS MD Aug 21, 2016 12:03
[2016-08-21] MEDS: DIGOXIN 0.125 MG TAB PO SCH (13:04)
--- NOTE | 2016-08-21 16:59 | PN ---
Date/Time of Note Date/Time of Note DATE: 08/21/16 TIME: 16:58 Assessment/Plan VTE Prophylaxis VTE Prophylaxis Intervention: heparin Lines/Catheters IV Catheter Type (from [facility]): Saline Lock Urinary Cath still in place: No Assessment/Plan Chief Complaint/Hosp Course 1. Acute respiratory failure. Hypoxic. Secondary to underlying congestive heart failure exacerbation. The patient will be adequately diuresed. Will provide supplemental oxygen 2. Non-ST elevation myocardial infarction. The patient on aspirin. Being followed by cardiology. Cardiac stress test showed small to moderate sized predominantly reversible perfusion abnormality in the infra-apical, distal to mid anteroseptal, and distal to mid anterior kimbrough and mild nonreversible perfusion defect in the inferolateral wall. Status post left heart catheterization on 08/20/2016 that showed normal coronaries. 3. Congestive heart failure exacerbation. Acute on chronic. Systolic dysfunction. Continue Lasix as per nephrology. 4. Cardiomyopathy with ejection fraction of 25%. Etiology unclear. Patient currently on beta blockers. Cardiology following. 5. Bilateral lower extremity edema. Bilateral lower extremity venous Doppler study due for any DVT. The patient will be adequately diuresed. 6. Acute nonoliguric kidney injury. Underlying unknown baseline creatinine. Nephrotoxic drugs will be used with caution. The patient's BUN and creatinine will be monitored closely. Nephrology following. 7. Bilateral lower extremity cellulitis. The patient will be continued on appropriate antibiotics. 8. Morbid obesity. BMI of 50.8 kilograms per meter square. Weight reduction will be advised. Dietary consult ordered. 9. Hypertensive urgency. The patient's blood pressure is trending down. The patient's blood pressure will be lowered gradually. 10. Polycythemia. Most probably secondary to recent use of testosterone as per hematology. Improving. 11. Dyslipidemia. Low-cholesterol diet. 12. Fluids, electrolytes, and nutrition. Low-cholesterol, renal diet. 13. DVT prophylaxis. Subcutaneous heparin. 14. Gastrointestinal prophylaxis. Histamine 2 receptor blockers. 15. Plan. Continue telemetry monitoring. Await clearance from consultants before discharge. Case discussed with Dr. Thapa. Problems: Subjective 24 Hr Interval Summary Free Text/Dictation The patient denies any chest pain or dyspnea. Exam/Review of Systems Vital Signs Vitals Vital Signs Date Time Temp Pulse Resp B/P Pulse Ox O2 Delivery O2 Flow Rate FiO2 08/21/16 16:11 75 08/21/16 15:56 2.0 08/21/16 14:58 98.5 19 129/67 100 08/20/16 20:10 Nasal Cannula Intake and Output 08/20/16 08/20/16 08/21/16 15:00 23:00 07:00 Intake Total 240 ml 1050 ml Output Total 2650 ml 1100 ml Balance -2410 ml -50 ml Exam GENERAL: This is a morbidly obese -[place] male lying in bed in mild respiratory distress. HEENT: Head normocephalic and atraumatic. Eyes: Anicteric sclerae. Conjunctivae clear. ENT: Nasal septum is midline. Oral mucosa is dry. NECK: Supple. No JVD noticed. RESPIRATORY: Bilaterally diminished breath sounds. No use of accessory muscles of respiration. CARDIAC: Regular rate and rhythm. S1 and S2 heard. ABDOMEN: Soft, nontender and nondistended. Bowel sounds positive in all 4 quadrants. GENITOURINARY: Deferred. EXTREMITIES: Bilateral lower extremity discoloration with erythema and tenderness to touch with an open wound on the right rider anteriorly. Bilateral lower extremity peripheral pulses palpable. NEUROLOGIC: The patient is awake, alert and oriented. Cranial nerves are grossly intact. Results Result Diagram: 08/21/16 0555 08/21/16 0555 Results 24 hrs Laboratory Tests Test 08/21/16 05:55 08/21/16 06:22 White Blood Count 6.5 Red Blood Count 5.95 Hemoglobin 17.3 Hematocrit 56.6 H Mean Corpuscular Volume 95.1 Mean Corpuscular Hemoglobin 29.1 Mean Corpuscular Hemoglobin Concent 30.6 L Red Cell Distribution Width 13.5 Platelet Count 218 Mean Platelet Volume 12.0 H Neutrophils % 53.4 Lymphocytes % 28.1 Monocytes % 14.4 H Eosinophils % 3.2 Basophils % 0.6 Nucleated Red Blood Cells % 0.0 Neutrophils # 3.5 Lymphocytes # 1.8 Monocytes # 0.9 Eosinophils # 0.2 Basophils # 0.0 Nucleated Red Blood Cells # 0.0 Sodium Level 141 Potassium Level 4.1 Chloride Level 104 Carbon Dioxide Level 30 Anion Gap 11 Blood Urea Nitrogen 18 Creatinine 1.38 H Glucose Level 111 Calcium Level 8.6 Total Bilirubin 0.9 Direct Bilirubin 0.00 Indirect Bilirubin 0.9 Aspartate Amino Transf (AST/SGOT) 29 Alanine Aminotransferase (ALT/SGPT) 49 Alkaline Phosphatase 59 Total Protein 6.6 Albumin 3.9 Globulin 2.70 Albumin/Globulin Ratio 1.44 Phosphorus Level 2.8 Magnesium Level 2.2 Medications Medications Current Medications Ondansetron HCl (Zofran Inj) 4 mg Q6H PRN IV NAUSEA AND/OR VOMITING; Start at 18:30 Aspirin (Aspirin) 81 mg DAILY PO Last administered on 08/21/16 09:09; Admin Dose 81 MG; Start 08/17/16 at 09:00 Acetaminophen (Tylenol Tab) 650 mg Q6H PRN PO PAIN LEVEL 1-3 OR FEVER Last administered on 08/16/16 22:15; Admin Dose 650 MG; Start 08/16/16 at 18:30 Acetaminophen/ Hydrocodone Bitart ([place] (5/325)) 2 tab Q6H PRN PO PAIN LEVEL 7 -10 Last administered on 08/18/16 06:59; Admin Dose 2 TAB; Start 08/16/16 at 18 :30 Morphine Sulfate (morphine) 2 mg Q4H PRN IV PAIN LEVEL 7-10; Start 08/16/16 at 18:30 Zolpidem Tartrate (Ambien) 5 mg QHS PRN PO INSOMNIA; Start 08/16/16 at 18:30 Magnesium Hydroxide (Milk Of Mag) 30 ml DAILY PRN PO CONSTIPATION; Start at 18:30 Bisacodyl (Dulcolax) 5 mg DAILY PRN PO CONSTIPATION; Start 08/16/16 at 18:30 Famotidine (Pepcid) 20 mg Q12 PO Last administered on 08/21/16 09:09; Admin Dose 20 MG; Start 08/16/16 at 21:00 Heparin Sodium (Porcine) (Heparin (5000 Units/0.5 ml)) 5,000 unit Q8 SC Last administered on 08/21/16 13:07; Admin Dose 5,000 UNIT; Start 08/16/16 at 22:00 Cephalexin (Keflex) 500 mg Q8 PO Last administered on 08/21/16 13:04; Admin Dose 500 MG; Start 08/16/16 at 22:00 Polyethylene Glycol (Miralax) 17 gm BID PO Last administered on 08/18/16 08:39 ; Admin Dose 17 GM; Start 08/16/16 at 21:00 Furosemide (Lasix) 40 mg DAILY IV Last administered on 08/21/16 09:09; Admin Dose 40 MG; Start 08/17/16 at 09:00 Hydralazine HCl (Apresoline) 10 mg Q6H PRN IV SBP>170; Start 08/16/16 at 18:30 Hydralazine HCl (Apresoline) 25 mg Q6 PO Last administered on 08/21/16 13:04; Admin Dose 25 MG; Start 08/17/16 at 18:00 Spironolactone (Aldactone) 25 mg DAILY PO Last administered on 08/21/16 09:09; Admin Dose 25 MG; Start 08/17/16 at 16:30 Digoxin (Digoxin) 0.125 mg DAILY@13 PO Last administered on 08/21/16 13:04; Admin Dose 0.125 MG; Start 08/18/16 at 13:00 Carvedilol (Coreg) 6.25 mg BID PO Last administered on 08/21/16 09:09; Admin Dose 6.25 MG; Start 08/18/16 at 09:00 Acetylcysteine (Nac) 600 mg BID PO Last administered on 08/21/16 09:09; Admin Dose 600 MG; Start 08/19/16 at 21:00 Lorazepam (Ativan) 0.5 mg Q6H PRN PO ANXIETY; Start 08/20/16 at 18:00 ISAAC MASSEY NP Aug 21, 2016 16:59
[2016-08-22] VITALS (8 sets, daily range): BP systolic 124–138; BP diastolic 76–84; PULSE 69–80; RESP 18–19
[2016-08-22] MEDS: CEPHALEXIN 500 MG CAP PO SCH ×2 (05:36→13:22)
[2016-08-22] MEDS: HEPARIN 5,000 UNIT/0.5 ML VIAL SC SCH ×2 (05:44→13:23)
[2016-08-22 07:06] LABS: ADD SCAN DIFF NO
[2016-08-22 07:17] LABS: BASOPHIL # 0.1 10^3/ul (0.0-0.1); BASOPHILS % 0.8 % (0.0-2.0); EOSINOPHILS # 0.2 10^3/ul (0.0-0.5); EOSINOPHILS % 4.1 % (0.0-7.0); HEMATOCRIT 57.8 % (42.0-52.0); HEMOGLOBIN 17.6 g/dl (14.0-18.0); LYMPHOCYTES # 1.9 10^3/ul (0.8-2.9); LYMPHOCYTES % 32.5 % (15.0-51.0); MEAN CORPUSCULAR HGB CONC 30.4 g/dl (32.0-37.0); MEAN CORPUSCULAR VOLUME 95.2 fl (82.0-101.0); MEAN PLATELET VOLUME 12.1 fl (7.4-10.4); MONOCYTE # 0.8 10^3/ul (0.3-0.9); MONOCYTES % 12.9 % (0.0-11.0); NEUTROPHIL # 2.9 10^3/ul (1.6-7.5); NEUTROPHILS % 49.4 % (39.0-77.0); PLATELET COUNT 206 10^3/UL (140-415); RED BLOOD COUNT 6.07 10^6/ul (4.70-6.10); RED CELL DISTRIBUTION WIDTH 13.8 % (11.5-14.5); WHITE BLOOD COUNT 5.9 10^3/ul (4.8-10.8)
--- NOTE | 2016-08-22 07:25 | PDOCDIS ---
Discharge Instructions DIAGNOSIS Discharge Diagnosis: Cardiomyopathy, Hypertension CONDITION Patient Condition: Stable HOME CARE INSTRUCTIONS: Diet Instructions: Low Fat /CholesterolSpecial Diet: Cardiac ACTIVITY: Activity Restrictions: Slowly Increase Activity Rest between Activity FOLLOW UP/APPOINTMENTS Appointments 1. Jamari Garibay MD Specialty: Internal Medicine Office Address: [address] [place] [address] Office 2. Paul Washington MD Specialty: Cardiology Office Address: [address] [place] [address] Office OTHER ORDERS: Other Orders: 1. Take a low cholesterol, low sodium diet. 2. Resume activities as tolerated. Rest in between activities. 3. Follow-up with a primary care physician in 1 week. If you do not have a primary care physician, please call Dr. Jamari Garibay's office. 4. Follow-up with Cardiology (Dr. Washington) in 2 weeks. 5. Avoid testosterone. 6. Please call 911 or go to the nearest ER if you have any chest pain or shortness of breath. ISAAC MASSEY NP Aug 22, 2016 07:25
[2016-08-22 07:27] LABS: ALBUMIN 4.2 g/dl (3.3-4.9); ALBUMIN/GLOBULIN RATIO 1.55; BILIRUBIN,INDIRECT 0.9 mg/dl (0-1.1); BILIRUBIN,TOTAL 0.9 mg/dl (0.2-1.3); CALCIUM 8.7 mg/dl (8.4-10.2); CREATININE 1.39 mg/dl (0.61-1.24); MAGNESIUM 2.2 mg/dl (1.7-2.5); PHOSPHORUS 3.2 mg/dl (2.5-4.9); POTASSIUM 4.6 mmol/L (3.5-5.1); TOTAL PROTEIN 6.9 g/dl (6.1-8.1)
[2016-08-22] MEDS ORDERED: FURO-109 PO (08:53)
[2016-08-22] MEDS ORDERED: CARV6.2579 PO (08:53)
[2016-08-22] MEDS ORDERED: CHOL100062 PO (08:53)
[2016-08-22] MEDS ORDERED: HYDR-3671 PO (08:53)
[2016-08-22] MEDS ORDERED: ASPI81TA3 PO (08:53)
[2016-08-22] MEDS ORDERED: DIGO125T PO (08:53)
[2016-08-22] MEDS ORDERED: SPIR25TA PO (08:53)
[2016-08-22] MEDS: POLYETHYLENE GLYCOL 17 GM PACKET PO SCH ×2 (09:00→09:18)
[2016-08-22] MEDS: SPIRONOLACTONE 25 MG TAB PO SCH (09:13)
[2016-08-22] MEDS: ASPIRIN 81 MG TAB PO SCH (09:13)
[2016-08-22] MEDS: ACETYLCYSTEINE 600 MG CAP PO SCH (09:13)
[2016-08-22] MEDS: FAMOTIDINE 20 MG TAB PO SCH (09:14)
[2016-08-22] MEDS: FUROSEMIDE 40 MG INJ IV SCH (09:17)
--- NOTE | 2016-08-22 09:43 | CONS ---
Date/Time of Note Date/Time of Note DATE: 08/22/16 TIME: 09:42 Consult Date/Type/Reason Admit Date/Time August 16, 2016 at 17:35 Initial Consult Date 08/18/16 Type of Consultation: cv Subjective tolerated angio. no sig disease noteed. continues good uo. No other events noted. No hemoptysis, hematemesis or hematochezia. OBJECTIVE: HEENT: Head is normocephalic. NECK: Supple. HEART: Regular rate. LUNGS: Showed diminished breath sounds at the base. ABDOMEN: Soft, nontender to palpation. No rebound or guarding. EXTREMITIES: Negative for clubbing or cyanosis. No edema. DERMATOLOGIC: No rashes. MUSCULOSKELETAL: Have no joint effusion. NEUROLOGIC: No change in exam. MEDICATIONS: The patient's medications have been reviewed. Objective Vital Signs Date Time Temp Pulse Resp B/P Pulse Ox O2 Delivery O2 Flow Rate FiO2 08/22/16 08:08 75 08/22/16 07:57 98.0 18 132/76 98 08/21/16 22:00 2.0 08/20/16 20:10 Nasal Cannula Intake and Output 08/21/16 08/21/16 08/22/16 15:00 23:00 07:00 Intake Total 250 ml 1600 ml 500 ml Output Total 1400 ml 450 ml 800 ml Balance -1150 ml 1150 ml -300 ml Results/Medications Result Diagram: 08/22/16 0555 08/22/16 0555 Results 24 hrs Laboratory Tests Test 08/22/16 05:55 White Blood Count 5.9 Red Blood Count 6.07 Hemoglobin 17.6 Hematocrit 57.8 H Mean Corpuscular Volume 95.2 Mean Corpuscular Hemoglobin 29.0 Mean Corpuscular Hemoglobin Concent 30.4 L Red Cell Distribution Width 13.8 Platelet Count 206 Mean Platelet Volume 12.1 H Neutrophils % 49.4 Lymphocytes % 32.5 Monocytes % 12.9 H Eosinophils % 4.1 Basophils % 0.8 Nucleated Red Blood Cells % 0.0 Neutrophils # 2.9 Lymphocytes # 1.9 Monocytes # 0.8 Eosinophils # 0.2 Basophils # 0.1 Nucleated Red Blood Cells # 0.0 Sodium Level 141 Potassium Level 4.6 Chloride Level 105 Carbon Dioxide Level 30 Anion Gap 11 Blood Urea Nitrogen 18 Creatinine 1.39 H Glucose Level 101 Calcium Level 8.7 Phosphorus Level 3.2 Magnesium Level 2.2 Total Bilirubin 0.9 Direct Bilirubin 0.00 Indirect Bilirubin 0.9 Aspartate Amino Transf (AST/SGOT) 37 Alanine Aminotransferase (ALT/SGPT) 49 Alkaline Phosphatase 60 Total Protein 6.9 Albumin 4.2 Globulin 2.70 Albumin/Globulin Ratio 1.55 Medications Current Medications Ondansetron HCl (Zofran Inj) 4 mg Q6H PRN IV NAUSEA AND/OR VOMITING; Start at 18:30 Aspirin (Aspirin) 81 mg DAILY PO Last administered on 08/22/16 09:13; Admin Dose 81 MG; Start 08/17/16 at 09:00 Acetaminophen (Tylenol Tab) 650 mg Q6H PRN PO PAIN LEVEL 1-3 OR FEVER Last administered on 08/16/16 22:15; Admin Dose 650 MG; Start 08/16/16 at 18:30 Acetaminophen/ Hydrocodone Bitart ([place] (5/325)) 2 tab Q6H PRN PO PAIN LEVEL 7 -10 Last administered on 08/18/16 06:59; Admin Dose 2 TAB; Start 08/16/16 at 18 :30 Morphine Sulfate (morphine) 2 mg Q4H PRN IV PAIN LEVEL 7-10; Start 08/16/16 at 18:30 Zolpidem Tartrate (Ambien) 5 mg QHS PRN PO INSOMNIA; Start 08/16/16 at 18:30 Magnesium Hydroxide (Milk Of Mag) 30 ml DAILY PRN PO CONSTIPATION; Start at 18:30 Bisacodyl (Dulcolax) 5 mg DAILY PRN PO CONSTIPATION; Start 08/16/16 at 18:30 Famotidine (Pepcid) 20 mg Q12 PO Last administered on 08/22/16 09:14; Admin Dose 20 MG; Start 08/16/16 at 21:00 Heparin Sodium (Porcine) (Heparin (5000 Units/0.5 ml)) 5,000 unit Q8 SC Last administered on 08/22/16 05:44; Admin Dose 5,000 UNIT; Start 08/16/16 at 22:00 Cephalexin (Keflex) 500 mg Q8 PO Last administered on 08/22/16 05:36; Admin Dose 500 MG; Start 08/16/16 at 22:00 Polyethylene Glycol (Miralax) 17 gm BID PO Last administered on 08/18/16 08:39 ; Admin Dose 17 GM; Start 08/16/16 at 21:00 Furosemide (Lasix) 40 mg DAILY IV Last administered on 08/22/16 09:17; Admin Dose 40 MG; Start 08/17/16 at 09:00 Hydralazine HCl (Apresoline) 10 mg Q6H PRN IV SBP>170; Start 08/16/16 at 18:30 Hydralazine HCl (Apresoline) 25 mg Q6 PO Last administered on 08/22/16 05:35; Admin Dose 25 MG; Start 08/17/16 at 18:00 Spironolactone (Aldactone) 25 mg DAILY PO Last administered on 08/22/16 09:13; Admin Dose 25 MG; Start 08/17/16 at 16:30 Digoxin (Digoxin) 0.125 mg DAILY@13 PO Last administered on 08/21/16 13:04; Admin Dose 0.125 MG; Start 08/18/16 at 13:00 Carvedilol (Coreg) 6.25 mg BID PO Last administered on 08/22/16 09:15; Admin Dose 6.25 MG; Start 08/18/16 at 09:00 Acetylcysteine (Nac) 600 mg BID PO Last administered on 08/22/16 09:13; Admin Dose 600 MG; Start 08/19/16 at 21:00 Lorazepam (Ativan) 0.5 mg Q6H PRN PO ANXIETY; Start 08/20/16 at 18:00 Assessment/Plan Chief Complaint/Hosp Course 1. Nonoliguric acute kidney injury, with unknown baseline creatinine. Etiology is secondary to hemodynamics, possible cardiorenal syndrome. The patient's renal function has been fluctuating, but overall improved and appears to have tolerated contrast load. Will continue the current treatment plan, supportive care, renally dose all meds, continue diuretic therapy. Avoid nephrotoxins. all meds dosed ok. 2. Possible chronic kidney disease. Etiology is unclear, may be secondary to hypertensive nephrosclerosis. The patient's urinalysis was bland. SPEP, UPEP, and immunofixation were negative. At this point, continue to monitor. Anticipate starting an HIMA inhibitor or ARB once the patient is status post cardiac catheterization. 3. Acute congestive heart failure exacerbation, systolic and diastolic. The patient has a positive stress test, pending cardiac catheterization. Continue to monitor. Follow up with cardiology. 4. Acute respiratory failure secondary to CHF. Clinically improving. Continue medical management. 5. Polycythemia. Workup ongoing by hematology. 6. Lower extremity cellulitis. Continue the current antibiotic regimen. 7. Mineral bone disorder. Continue to monitor calcium and phosphorus levels. 8. Hypertension. Continue the current blood pressure regimen. 9. Morbid obesity. Continue dietary modification. Problems: JANUSZ BAJWA MD Aug 22, 2016 09:43
[2016-08-22] MEDS: DIGOXIN 0.125 MG TAB PO SCH (12:43)
--- NOTE | 2016-08-22 14:16 | CONS ---
Date/Time of Note Date/Time of Note DATE: 08/22/16 TIME: 14:15 Assessment/Plan Assessment/Plan Chief Complaint/Hosp Course The patient is a 56 year old male who states that he has no past medical history , however has not been seen by a physician on a regular basis, who had been self -injecting testosterone every week for the last 6 weeks, last injection 2 weeks ago, not under the direction of a physician who presented with an NSTEMI and found to have cardiomyopathy with Ef 25%. Cardiac stress test showed small to moderate sized predominantly reversible perfusion abnormality in the infra- apical, distal to mid anteroseptal, and distal to mid anterior kimbrough and mild nonreversible perfusion defect in the inferolateral wall. Plan for left heart catheterization. Hematology asked to evaluate patient for polycythemia with hemoglobin of 19.1 and hematocrit of 61.3. 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 No known prior pulmonary issues, no known sleep apnea or snoring. - I doubt primary polycythemia, however will check epo level (would be suppressed if primary polycythemia) and JAK2 level - pending - Although the role of phlebotomy is not as well defined in the setting of testosterone-induced polycythemia, I do believe it would beneficial in this setting given that he presenting with NSTEMI which was likely caused by increase in blood viscosity which is a risk factor for thrombosis and stroke. Status post phlebotomy with 500 cc removed 08/18 with decrease in Hct to 56. Unfortunately, [employer] is unable to provide further service as no longer contracted with [facility]. Patient can follow-up with me after discharge and phlebotomy can be performed as an outpatient if needed. - Would recommend work-up for traditional risk factors for CV disease such as HLD, DM if not already done as patient had not seen a physician in a long time. Coronary angiography showed no significant coronary artery disease consistent with severe nonischemic cardiomyopathy. - Patient already on aspirin which will help decrease risk of thrombosis - Also sent SPEP/UPEP/immunofixation and kappa/lambda light chains to evaluate for rare causes of cardiomyopathy such as amyloidosis however less likely. SPEP only showed decreased albumin, UPEP neg, urine and serum NIKKIE negative, kappa free light chains normal, pending lambda light chains. Problems: Consultation Date/Type/Reason Admit Date/Time August 16, 2016 at 17:35 Initial Consult Date 08/18/16 Type of Consultation: Hematology 24 HR Interval Summary Free Text/Dictation Patient doing well, plan to be discharged home today. Exam/Review of Systems Vital Signs Vitals Vital Signs Date Time Temp Pulse Resp B/P Pulse Ox O2 Delivery O2 Flow Rate FiO2 08/22/16 12:05 80 08/22/16 11:46 98.0 18 124/76 98 08/21/16 22:00 2.0 08/20/16 20:10 Nasal Cannula Intake and Output 08/21/16 08/21/16 08/22/16 15:00 23:00 07:00 Intake Total 250 ml 1600 ml 500 ml Output Total 1400 ml 450 ml 800 ml Balance -1150 ml 1150 ml -300 ml Exam Constitutional: alert, obese, oriented Psych: no complaints Head: normocephalic Eyes: nl conjunctiva Neck: supple Respiratory: clear to auscultation Cardiovascular: regular rate and rhythm Gastrointestinal: non-tender, soft Musculoskeletal: swelling (abrasions on bilateral lower extremities) Neurological: PER DIEM PHYSICAL THERAPIST ASSISTANT II-XII intact Results Result Diagram: 08/22/16 0555 08/22/16 0555 Results 24 hrs Laboratory Tests Test 08/22/16 05:55 08/22/16 13:20 White Blood Count 5.9 Red Blood Count 6.07 Hemoglobin 17.6 Hematocrit 57.8 H Mean Corpuscular Volume 95.2 Mean Corpuscular Hemoglobin 29.0 Mean Corpuscular Hemoglobin Concent 30.4 L Red Cell Distribution Width 13.8 Platelet Count 206 Mean Platelet Volume 12.1 H Neutrophils % 49.4 Lymphocytes % 32.5 Monocytes % 12.9 H Eosinophils % 4.1 Basophils % 0.8 Nucleated Red Blood Cells % 0.0 Neutrophils # 2.9 Lymphocytes # 1.9 Monocytes # 0.8 Eosinophils # 0.2 Basophils # 0.1 Nucleated Red Blood Cells # 0.0 Sodium Level 141 Potassium Level 4.6 Chloride Level 105 Carbon Dioxide Level 30 Anion Gap 11 Blood Urea Nitrogen 18 Creatinine 1.39 H Glucose Level 101 Calcium Level 8.7 Phosphorus Level 3.2 Magnesium Level 2.2 Total Bilirubin 0.9 Direct Bilirubin 0.00 Indirect Bilirubin 0.9 Aspartate Amino Transf (AST/SGOT) 37 Alanine Aminotransferase (ALT/SGPT) 49 Alkaline Phosphatase 60 Total Protein 6.9 Albumin 4.2 Globulin 2.70 Albumin/Globulin Ratio 1.55 Lab Scanned Report REFERENCE LAB TO,STAN Michelle MD Aug 22, 2016 14:16
--- NOTE | 2016-08-22 19:22 | DS ---
DATE OF ADMISSION: 08/16/2016 DATE OF DISCHARGE: 08/22/2016 FINAL DIAGNOSES: 1. Acute hypoxic respiratory failure secondary to congestive heart failure exacerbation, resolved. 2. Non-ST elevation myocardial infarction, most probably type 2 event. 3. Congestive heart failure exacerbation. 4. Acute on chronic systolic dysfunction. 5. Nonischemic cardiomyopathy. 6. Bilateral lower extremity cellulitis. 7. Acute on chronic nonoliguric acute kidney injury. 8. Morbid obesity. 9. Hypertensive urgency. 10. Polycythemia. 11. Dyslipidemia. 12. Vitamin D deficiency. CONSULTATIONS: 1. Dr. Paul Washington, Cardiology. 2. Dr. Martin Moore, Nephrology. 3. Dr. Miranda Allen, Hematology. HOSPITAL COURSE: This is a 56-year-old male who denied any significant past medical history. He came to the emergency room with chief complaint of dyspnea as well as bilateral lower extremity swelling that has been going on for the past 2 days. The patient verbalized exertional dyspnea with paroxysmal nocturnal dyspnea and orthopnea. The patient denied any chest pain or palpitations. The patient was complaining of abdominal fullness. In the emergency room, the patient was noticed to have a blood pressure of 219/ 122. The patient's initial set of troponins were negative. The patient was found to have a creatinine of 1.64. The patient was noticed to have a hemoglobin and hematocrit of 19.3 and 60.9 respectively. His chest x-ray showed moderate cardiomegaly with pulmonary vascular congestion and atherosclerosis. Provided the patient's history of present illness and the diagnostic findings, a clinical decision was made to admit the patient to inpatient setting to have him further evaluated. The patient was admitted to inpatient telemetry floor. A cardiology consult and nephrology consult was called on this patient. The patient underwent a 2D echocardiogram that showed significant cardiomyopathy with ejection fraction of 25%. Hence, the patient was started on beta blockers. The patient was not a good candidate for ARBs or ACEIs because of his underlying poor renal function. Nevertheless, the patient was started on aldosterone antagonist. The patient was noticed to have polycythemia with a very high hemoglobin and hematocrit. The etiology of this remained unclear. Hence, hematology consult was called as per recommendations of cardiology. As per hematology, the patient has polycythemia, most probably secondary to his recent use of testosterone. Hematology was initially planning on therapeutic phlebotomy. The patient had phlebotomy with 500 mL removed on 08/18/2016 with a decrease in the patient's hematocrit. Further phlebotomy was not done since [facility] was unable to provide further service at [facility] since they were no longer contracted with [facility]. The patient underwent a cardiac stress test on 08/19/2016 that showed small to moderate size predominantly reversible perfusion abnormality in the inferoapical, distal to mid anteroseptal, and distal to mid anterior kimbrough and mild nonreversible reduction in perfusion in the inferolateral wall with ejection fraction of 24%. The patient was taken to the mechanical laboratory technician on 08/20/2016 for evaluation for any underlying coronary artery disease. The patient had clean coronaries. Hence, it was concluded that the patient's underlying cardiomyopathy is nonischemic. The patient denied use of any recreational drugs. The patient's urine drug screen was negative too. The patient was maintained on Lasix for his underlying congestive heart failure. The patient's bilateral lower extremity edema also improved with IV Lasix. The patient also was noticed to have bilateral lower extremity cellulitis that was treated with antibiotics with improvement in the patient's cellulitis. The patient also had hypertensive urgency. The patient was maintained on antihypertensives and the patient's blood pressure was gradually lowered to obtain optimal blood pressure control. The patient was also started on digoxin for his underlying heart failure. The patient was noticed to have chronic kidney disease, most probably secondary to longstanding undiagnosed hypertension. Nephrology was following the patient during the patient's hospital course. The patient's kidneys were protected with Mucomyst prior to and after cardiac catheterization. The patient was noticed to have dyslipidemia. The patient was instructed on a low cholesterol diet. Nursing was given instructions on a low-cholesterol, low-sodium diet. The patient was not started on any statin since the patient had no coronary artery disease evident on a left heart catheterization. The patient had a prolonged hospital course because of the need to be consulted by multiple physicians, the need for phlebotomy because of underlying polycythemia, before the patient can be taken for a stress test or any cardiac procedures. The patient was cleared by consultants to be discharged home. DISCHARGE DISPOSITION AND PLAN: The patient will be discharged home today. The patient was instructed to take a low-cholesterol, low-sodium diet. He was instructed to resume activities as tolerated and to rest in between activities. The patient was instructed to follow up with his primary care physician in 1 week and, if he does not have a primary care physician, to please call Dr. Jamari Garibay's office. He was instructed to follow up with Dr. Washington in 2 weeks. He was instructed to avoid taking testosterone. He was instructed to call 911 or go to the nearest emergency room if he has any chest pain or shortness of breath. The patient verbalized understanding of his discharge instructions. CONDITION AT DISCHARGE: Stable. DISCHARGE MEDICATIONS: 1. Aspirin 81 mg p.o. daily. 2. Coreg 6.25 mg p.o. b.i.d. 3. Vitamin D3 of 1000 units p.o. daily. 4. Digoxin 0.125 mg p.o. daily. 5. Lasix 40 mg p.o. daily. 6. Hydralazine 25 mg p.o. q.8 hours. 7. Aldactone 25 mg p.o. daily. PERTINENT LABORATORY AND DIAGNOSTIC DATA: 1. 2D echocardiogram. Severe global left ventricular systolic dysfunction. Ejection fraction of 25%. Stage I diastolic dysfunction. Trace mitral regurgitation. No significant aortic stenosis or insufficiency. 2. Left heart catheterization. Coronary angiography showed no significant coronary artery disease consistent with severe nonischemic cardiomyopathy. 3. Latest CBC: WBC 5.9, hemoglobin 17.6, hematocrit 57.8, platelet count 206. 4. Latest BMP: Sodium 141, potassium 4.6, chloride 105, carbon dioxide 30, anion gap 11, BUN 18, creatinine 1.39, glucose 101, calcium 8.7, phosphorus 3.2 , magnesium 2.2. 5. Hemoglobin A1c 5.6. 6. Fasting lipid panel: Triglycerides 154, total cholesterol 154, LDL 94, HDL of 29. 7. Vitamin D 11. 8. Iron panel: Iron 129, TIBC 324, iron saturation 40. 9. Urine drug screen. Negative. 10. Nuclear medicine cardiac stress test on 08/19/2016. Small to moderate sized predominantly reversible perfusion abnormality in the inferoapical, distal to mid anteroseptal, and distal to mid anterior kimbrough. Mild nonreversible reduction in perfusion in the inferolateral wall. Moderate hypokinesis of the left ventricle. Left ventricular ejection fraction at stress is 24%. 11. Bilateral lower extremity venous Doppler study. No sonographic evidence for DVT. 12. Renal ultrasound. A 2.6 cm simple left renal cyst. Bilateral kidneys are otherwise unremarkable. 13. Chest x-ray. Moderate cardiomegaly with pulmonary vascular congestion. Atherosclerosis. At this time, we would like to thank all the consultants for seeing the patient , doing the necessary procedures, and providing clinical recommendations. The case and management of this patient was fully discussed with Dr. Mcintyre. Approximately 40 minutes was spent on coordinating the discharge on this patient. ISAAC MCINTYRE MD AM/NTS Conf#: [id number] DID#: [id number] CC: RIDDHI GIRON MD;*EndCC* MTDD
== END 2016-08-22 13:45 | disposition home or self-care (01) | DRG 280 ==
LOC: E/R 16:13 → TEL 17:35
PROVIDERS: ADMIT Internal Medicine; ATTEND Internal Medicine
PROC: 059Y3ZZ Drainage of Upper Vein, Percutaneous Approach (ICD-10-PCS; 2016-08-18)
PROC: B211YZZ Fluoroscopy of Multiple Coronary Arteries using Other Contrast (ICD-10-PCS; 2016-08-20)
PROC: 4A023N7 Measurement of Cardiac Sampling and Pressure, Left Heart, Percutaneous Approach (ICD-10-PCS; principal; 2016-08-20 16:30)
DX: I13.0 Hypertensive heart and chronic kidney disease with heart failure and stage 1 through stage 4 chronic kidney disease, or unspecified chronic kidney disease (principal); I21.4 Non-ST elevation (NSTEMI) myocardial infarction; J96.01 Acute respiratory failure with hypoxia; L03.115 Cellulitis of right lower limb; N17.9 Acute kidney failure, unspecified; L03.116 Cellulitis of left lower limb; I42.9 Cardiomyopathy, unspecified; I50.23 Acute on chronic systolic (congestive) heart failure; Z68.43 Body mass index [BMI] 50.0-59.9, adult; I16.0 Hypertensive urgency; D75.1 Secondary polycythemia; N18.9 Chronic kidney disease, unspecified; E66.01 Morbid (severe) obesity due to excess calories; E78.5 Hyperlipidemia, unspecified; E55.9 Vitamin D deficiency, unspecified; E83.9 Disorder of mineral metabolism, unspecified
CPT/HCPCS: 36415; 71010; 76775; 78452; 80053; 80061; 80162; 80307; 81001; 81003; 82043; 82306; 82550; 82553; 82570; 82652; 82668; 82728; 83036; 83540; 83735; 83880; 84100; 84155; 84156; 84165; 84166; 84300; 84439; 84443; 84484; 85025; 85610; 85730; 86320; 86325; 93005; 93017; 93306; 93458; 93970; 96374; A9500; A9505; C1769; C1887; C1894; J1644; J1940; J2250; J2785; J3010; J7030; Q9967